=== PATIENT | male | born 1930 | race Caucasian/White ===

== ENCOUNTER 2018-02-14 17:16 | Inpatient (IN) | payer MEDICARE, OTHER ==
[~2018-02-14 17:16] MED LIST: ISOVUE-370 76%-LOCM 1 ML ONE
[2018-02-14 17:40] LABS: Hemoglobin 14.8 g/dL (14.0-18.0); Mean Corpuscular HGB CONC 33.9 g/dL (32.0-36.0); Mean Corpuscular Hemoglobin 31.3 pg (27.0-31.0); Mean Corpuscular Volume 92.5 fL (78.0-98.0); RBC Distribution Width 13.3 % (11.5-14.5); Red Blood Cell (RBC) Count 4.74 mill/uL (4.70-6.10); White Blood Cell (WBC) Count 7.9 thou/uL (4.8-10.8)
[2018-02-14 17:56] LABS: #Eosinphils 0.1 thou/uL (0.0-0.7); #Lymphocytes 1.9 thou/uL (1.20-3.40); #Monocytes 0.3 thou/uL (0.11-0.59); #Neutrophils 5.6 thou/uL (1.40-6.50); %Basophils 0.2 % (0.0-1.0); %Eosinophils 0.8 % (0.0-10.0); %Lymphocytes 23.5 % (21.0-51.0); %Monocytes 4.3 % (0.0-10.0); %Neutrophils 71.2 % (42.0-75.0); Platelet Count 72 thou/uL (130-400)
[2018-02-14 18:03] LABS: Troponin I Less than 0.010 ng/mL (< 0.028)
[2018-02-14 18:09] LABS: Potassium 2.7 mmol/L (3.5-5.1)
[2018-02-14 18:11] LABS: ALT (SGPT) 11 U/L (8-55); AST (SGOT) 16 U/L (5-34); Albumin 4.3 g/dL (3.4-4.8); Alkaline Phosphatase 91 U/L (40-150); Anion Gap 18 mmol/L (10-20); BUN (Urea Nitrogen) 17 mg/dL (8.4-25.7); CK (CPK) 36 U/L (30-200); Calc. Creatinine Clearance 0 mL/min (70-130); Calcium 9.9 mg/dL (7.8-10.44); Carbon Dioxide 22 mmol/L (23-31); Chloride 99 mmol/L (98-107); Estimated GFR-MDRD 70; Globulin 3.1 g/dL (2.4-3.5); Glucose 100 mg/dL (83-110); Protein, Total 7.4 g/dL (5.8-8.1); Sodium 136 mmol/L (136-145)
[2018-02-14] MEDS ORDERED: Potassium Chloride 20 MEQ TAB ONE (18:13)
[2018-02-14 18:20] LABS: INR-International Normal Ratio 1.1; PTT 29.7 SEC (22.9-36.1); Prothrombin Time 13.8 SEC (12.0-14.7)
--- NOTE | 2018-02-14 19:14 | CT ---
CT HEAD NONCONTRAST: 02/14/18 HISTORY: CVA. FINDINGS: No comparison. There is no evidence of acute intracranial or infarct. Diffuse cortical atrophy, chronic ischemic anna nges, and areas of old lacunar infarct are apparent. 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 It measures up to 1.4 cm oblique di ameter on the axial images. Calcification within the arterial structures. Tiny focus of increased den sity near the garcia-white junction of the posterior aspect of the right frontal lobe is noted. In the setting of recent resolution of slurred speech, however, it is of doubtful clinical significance. It will be evaluated on pending CT arteriogram. 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 CT arteriogram is pending, with multip kurtis reformats to give better characterization. Atherosclerosis. Findings were called to Dr. Bowie in the Emergency Department at 1723 hours. Code CR POS: [facility]
[2018-02-14 21:12] LABS: Troponin I Less than 0.010 ng/mL (< 0.028)
[2018-02-14] MEDS ORDERED: Labetalol HCl 100 MG/20 ML VIAL SLOW IVP PRN (22:59)
[2018-02-14] MEDS ORDERED: hydrALAZINE 20 MG/ML VIAL SLOW IVP PRN (22:59)
[2018-02-14] MEDS ORDERED: Potassium Chloride 10 MEQ in Premix Bag 1 BAG IVPB SCH (23:00)
[2018-02-14] MEDS ORDERED: Potassium Chloride 40 MEQ in Sodium Chloride 0.9% 500 ML IVPB SCH (23:30)
[2018-02-15 00:02] LABS: Troponin I 0.011 ng/mL (< 0.028)
[2018-02-15 05:32] LABS: Cardiac Risk 5.4 (Less than 4.5)
--- NOTE | 2018-02-15 08:42 | HP ---
CHIEF COMPLAINT: Slurred speech. HISTORY OF PRESENT ILLNESS: This is an 87-year-old male with past medical history of hypertension, h yperlipidemia, presenting with chief complaint of slurred speech, which came on suddenly 2 hours prio r to admission at 1513. Per the , patient has been having slurred speech, which has been intermi ttent. The states that every now and then, patient gets confused and patient developed slurred speech and today she noticed that and she called EMS. Per records en route to the hospital, patient' s speech improved. At this time on evaluation, patient denies any headaches, nausea, vomiting, dizzi ness, chest pain, upper extremity weakness or lower extremity weakness. Per the , patient's base line, patient is able to speak fluently without any slurring of his speech and patient is able to amb ulate without any difficulties. REVIEW OF SYSTEMS: All systems has been reviewed and are negative. FAMILY HISTORY: Reviewed and noncontributory to this visit. PAST MEDICAL HISTORY: Hypertension, hyperlipidemia. PAST SURGICAL HISTORY: Right shoulder surgery, left shoulder surgery. PSYCHIATRIC HISTORY: No psych history. SOCIAL HISTORY: Denies alcohol use, denies illicit drug use. Denies any smoking history. ALLERGIES: No known drug allergies. CURRENT MEDICATIONS: Patient takes tramadol 50 mg and multivitamins. PHYSICAL EXAMINATION: VITAL SIGNS: Blood pressure 148/84, pulse of 73, respiratory rate of 17, O2 sat of 94. GENERAL: Patient is alert, oriented x3. Patient is able to state his name. Patient knows the year and patient knows the vice president of consulting services. Patient does not appear to be in any acute dis tress. The patient is able to speak in full sentences. Patient is very pleasant. HEENT: Normocephalic, atraumatic. Pupils are equally round and reactive to light. Extraocular move ments are intact. No scleral icterus. Patient does not have any facial droop. Mucous membranes are moist. NECK: Supple, nontender. Trachea is midline. Full range of motion. LUNGS: Clear to auscultation bilateral. No wheezing, no rales, no rhonchi is appreciated. CARDIOVASCULAR: Positive S1, S2, regular rate and rhythm. No murmurs, no gallops, or rubs appreciat ed. ABDOMEN: Soft, nontender, nondistended. No masses. No pulsatile mass. No peritoneal signs, no rig idity, no guarding. EXTREMITIES: Upper extremity, 5/5 upper extremity strength, good pulses bilaterally. Lower extremit ies, no edema 5/5 lower extremity strength. Good pulses bilaterally. NEUROLOGIC: Cranial nerves II through XII grossly intact. No neurologic deficits noted. NIH stroke scale is 0. SKIN: Warm, dry, and intact. EMERGENCY ROOM COURSE: In the ED, patient received potassium chloride and aspirin. IMAGING: EKG showed rate of 74 with PVCs, narrow complex rhythm, normal axis. Brain CT showed there is no evidence of acute intracranial or infarct, diffuse cortical atrophy, chronic ischemic changes and areas of old lacunar infarct apparent. There is marked aneurysmal dilatation, long segment of th e basilar artery including the left vertebral artery. It measures up to 1.4 cm oblique diameter on t he axial images, calcification within the arterial structures. Tiny focal of increased density near the garcia-white junction of the posterior aspect of the right frontal lobe is noted. In the setting o f recent resolution of slurred speech; however, it is of doubtful clinical significance, it will be e valuated on pending CT arteriogram. LABORATORY DATA: WBC 7.9, hemoglobin 14.8, hematocrit 43.8, platelets 72. PT 13.8, INR is 1.1, PTT 29.7. Sodium 136, potassium 2.7, chloride is 99, carbon dioxide of 22, BUN is 17, creatinine is 1.01 , GFR of 70, glucose of 100. AST 16, ALT 11. Troponin less than 0.010 x2. Triglycerides 190, yuri sterol 162, LDL 94, HDL 30, heart disease risk ratio of 5.4. TSH is 3.328. ASSESSMENT AND PLAN: This is an 87-year-old male being admitted for slurred speech. At this point, we will rule out stroke. CT of the brain has not shown any acute intracranial pathology. We will fo llow up on MRI of the head. We will start patient on statins. We will continue aspirin and we will follow up with the patient in the morning. 1. History of hypertension. We will continue patient on current medication. 2. Hyperlipidemia. We will continue patient on statin. 3. Deep venous thrombosis and gastrointestinal prophylaxis. We will do SCDs and Pepcid.
[2018-02-15] MEDS ORDERED: Prevnar 13-Val Conj/PF 0.5 ML SYRINGE IM ONE (09:00)
[2018-02-15] MEDS ORDERED: Enoxaparin Sodium 40 MG/0.4 ML SYRINGE SC SCH (09:00)
[2018-02-15] MEDS ORDERED: Aspirin 81 mg Enteric Coated Tablet PO SCH (09:00)
--- NOTE | 2018-02-15 09:03 | CT ---
CT ARTERIOGRAM NECK WITH IV CONTRAST AND 3D MIP IMAGING CT ARTERIOGRAM HEAD WITH IV CONTRAST AND 3D MIP IMAGING CT BRAIN WITH IV CONTRAST 02/14/18 HISTORY: Slurred speech with resolution. TIA. FINDINGS: Atelectasis at the lung apices. Calcification throughout the arterial structures. Normal branches of the great vessels at the aortic arch. Good flow into carotid and vertebral system. Mild calcification and plaque at each carotid bifurcation without significant stenosis apparent. There is long segment dilatation of the left vertebral artery and the ectatic basilar artery that korina sures up to 1.0 cm diameter. The distal basilar artery contains a small thin focus of filling defect where it curves near the midline. This may simply represent wall thrombus on the coronal images, alth ough it has appearance of a possible very limited dissection on the axial images. [place] of [place] is intact. Good flow into each cerebral arterial system. Venous anomaly is noted at the medial aspect of the right frontoparietal level where a hyperdense sub tle focus is present on the noncontrast CT images. This is consistent with a small cavernous angioma. 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 This has the merna earance of a chronic process. No acute abnormalities are apparent. Atherosclerosis. Findings were called to Dr. Bowie in the Emergency Department at 1753 hours. Code CR. POS: [facility]
--- NOTE | 2018-02-15 11:52 | MRI ---
BRAIN MRI WITHOUT CONTRAST: CLINICAL HISTORY: Slurred speech. TIA. FINDINGS: Moderate global atrophy is present. There is a focus of restricted diffusion involving the left para median malik. There is ventral mass effect upon the right aspect of the malik from dolichoectasia of t he basilar artery, as was depicted on the preceding CTA exam, on 02/14/2018. No hemorrhagic suscepti bility is seen intracranially. There is mild chronic ischemic disease. Numerous dilated perivascula r spaces are present bilaterally. IMPRESSION: 1. Focal restricted diffusion, indicating acute ischemia of the left paramedian malik. 2. 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 Reference preceding C TA examination for details. 3. Moderate global atrophy and mild chronic microvascular ischemic disease. POS: [facility]
--- NOTE | 2018-02-15 14:27 | PDOC.PN ---
- Subjective Encounter Start Date: 02/15/18 Encounter Start Time: 14:26 Pt seen for followup re: ischemic CVA. Denies chest pain, shortness of breath , fevers or chills. No nausea or vomiting. Speech is better. - Objective Resuscitation Status: Resuscitation Status FULL:Full Resuscitation MAR Reviewed: Yes Vital Signs & Weight: Vital Signs (12 hours) Temp Pulse Pulse Pulse Pulse Resp BP 02/15/18 11:55 97.9 F 92 20 02/15/18 10:34 90 89 97 136/81 02/15/18 08:55 02/15/18 08:00 99.3 F 82 20 02/15/18 04:00 98.1 F 67 19 BP BP BP Pulse Ox 02/15/18 11:55 153/88 H 96 02/15/18 10:34 123/85 153/88 H 02/15/18 08:55 98 02/15/18 08:00 131/91 H 98 02/15/18 04:00 120/70 98 Weight Weight 143 lb 12.8 oz I&O: 02/14/18 02/15/18 02/16/18 06:59 06:59 06:59 Intake Total 240 Balance 240 Result Diagrams: 02/15/18 14:50 02/15/18 14:50 Additional Labs: Accuchecks 02/14/18 17:28 POC Glucose 99 EKG Reviewed by me: Yes (Tele: NSR) Phys Exam - Physical Examination Constitutional: NAD HEENT: moist MMs, sclera anicteric, oral pharynx no lesions, 2+ tonsils Neck: no nodes, no JVD, supple, full ROM Respiratory: no wheezing, no rales, no rhonchi, clear to auscultation bilateral Cardiovascular: RRR, no rub S1, S2 Gastrointestinal: soft, non-tender, no distention, positive bowel sounds Neurological: non-focal, moves all 4 limbs Psychiatric: normal affect Deviation from normal: Oriented to person and place, not to time Dx/Plan (1) Ischemic cerebrovascular accident (CVA) Code(s): I63.9 - CEREBRAL INFARCTION, UNSPECIFIED Status: Acute Comment: continue aspirin, start Plavix (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 Status: Acute Comment: d/w neurosurgery service. Recommed adding Plavix to aspirin. (3) Hypokalemia Code(s): E87.6 - HYPOKALEMIA Status: Acute Comment: replace potassium and recheck (4) HTN (hypertension) Code(s): I10 - ESSENTIAL (PRIMARY) HYPERTENSION Status: Chronic Comment: controlled (5) Dyslipidemia Code(s): E78.5 - HYPERLIPIDEMIA, UNSPECIFIED Status: Chronic Comment: continue statin - Plan * . Review of Systems - Review of Systems Constitutional: negative: fever, chills, sweats, weakness, malaise Respiratory: negative: Cough, Shortness of Breath, SOB with Excertion, Pleuritic Pain, Wheezing Cardiovascular: negative: chest pain, palpitations, orthopnea, paroxysmal nocturnal dyspnea, edema, light headedness Gastrointestinal: negative: Nausea, Vomiting, Abdominal Pain, Diarrhea, Constipation, Melena, Hematochezia Genitourinary: negative: Dysuria, Frequency, Incontinence, Hematuria, Retention Musculoskeletal: negative: Neck Pain, Shoulder Pain, Arm Pain, Back Pain, Hand Pain, Leg Pain, Foot Pain Neurological: Change in Speech. negative: Weakness, Numbness, Incoordination, Confusion, Seizures - Medications/Allergies Allergies/Adverse Reactions: Allergies Allergy/AdvReac Type Severity Reaction Status Date / Time No Known Allergies Allergy Verified 02/14/18 21:13 Medications: Current Medications Aspirin (Ecotrin) 325 mg PO DAILY [facility] Atorvastatin Calcium (Lipitor) 80 mg PO HS [facility] Clopidogrel Bisulfate (Plavix) 75 mg PO DAILY [facility] Hydralazine HCl (Apresoline) 10 mg SLOW IVP Q4H PRN PRN Reason: BP > 220/110 Labetalol HCl (Normodyne) 20 mg SLOW IVP Q1H PRN PRN Reason: BP > 220/110 Multivitamins/Minerals (Ocuvite With Lutein) 1 tab PO HS [facility] Sodium Chloride (Flush - Normal Saline) 10 ml IVF Q12HR [facility] Last Admin: 02/15/18 08:57 Dose: 10 ml Sodium Chloride (Flush - Normal Saline) 10 ml IVF PRN PRN PRN Reason: Saline Flush Last Admin: 02/14/18 23:46 Dose: 10 ml Tramadol HCl (Ultram) 50 mg PO HS COUNTS INCLUDE 234 BEDS AT THE [facility]
[2018-02-15 15:14] LABS: Anion Gap 11 mmol/L (10-20); BUN (Urea Nitrogen) 14 mg/dL (8.4-25.7); Calc. Creatinine Clearance 45 mL/min (70-130); Calcium 9.5 mg/dL (7.8-10.44); Carbon Dioxide 25 mmol/L (23-31); Chloride 106 mmol/L (98-107); Estimated GFR-MDRD 66; Glucose 135 mg/dL (83-110); Potassium 3.3 mmol/L (3.5-5.1); Sodium 139 mmol/L (136-145)
[2018-02-15 15:27] LABS: #Lymphocytes 1.3 thou/uL (1.20-3.40); #Monocytes 0.2 thou/uL (0.11-0.59); #Neutrophils 3.4 thou/uL (1.40-6.50); %Basophils 0.2 % (0.0-1.0); %Eosinophils 0.9 % (0.0-10.0); %Monocytes 3.4 % (0.0-10.0); %Neutrophils 69.5 % (42.0-75.0); Hemoglobin 12.9 g/dL (14.0-18.0); Large Platelets SLIGHT; MDiff Complete? YES; Mean Corpuscular Hemoglobin 32.1 pg (27.0-31.0); Mean Corpuscular Volume 91.7 fL (78.0-98.0); Ovalocytes SLIGHT = 2-5 cells (100X) (0-1/hpf); PLT Morphology Comment Appears Decreased; Platelet Count 70 thou/uL (130-400); RBC Distribution Width 13.4 % (11.5-14.5); White Blood Cell (WBC) Count 4.9 thou/uL (4.8-10.8)
[2018-02-15] MEDS: traMADol HCl 50 MG TAB PO SCH (21:19)
[2018-02-15] MEDS: Atorvastatin Calcium 40 MG TAB PO SCH (21:19)
[2018-02-15] MEDS: Vit A,C & E/Lutein/Minerals Tablet PO SCH (21:19)
[2018-02-16 05:08] LABS: #Eosinphils 0.1 thou/uL (0.0-0.7); #Lymphocytes 1.5 thou/uL (1.20-3.40); #Monocytes 0.3 thou/uL (0.11-0.59); #Neutrophils 3.1 thou/uL (1.40-6.50); %Basophils 0.9 % (0.0-1.0); %Eosinophils 1.4 % (0.0-10.0); %Monocytes 5.7 % (0.0-10.0); %Neutrophils 62.1 % (42.0-75.0); Hemoglobin 12.5 g/dL (14.0-18.0); Mean Corpuscular Hemoglobin 31.9 pg (27.0-31.0); Mean Corpuscular Volume 93.8 fL (78.0-98.0); Mean Platelet Volume 10.4 fL (7.4-10.4); Platelet Count 67 thou/uL (130-400); RBC Distribution Width 13.4 % (11.5-14.5); Red Blood Cell (RBC) Count 3.93 mill/uL (4.70-6.10)
[2018-02-16 05:21] LABS: Anion Gap 12 mmol/L (10-20); BUN (Urea Nitrogen) 18 mg/dL (8.4-25.7); Calc. Creatinine Clearance 58 mL/min (70-130); Calcium 9.3 mg/dL (7.8-10.44); Carbon Dioxide 25 mmol/L (23-31); Chloride 107 mmol/L (98-107); Estimated GFR-MDRD 88; Glucose 92 mg/dL (83-110); Sodium 141 mmol/L (136-145)
[2018-02-16] MEDS: Clopidogrel Bisulfate 75 MG TAB PO SCH (08:54)
[2018-02-16] MEDS: Aspirin 325 mg Enteric Coated Tablet PO SCH (08:54)
--- NOTE | 2018-02-16 09:54 | PRG ---
DATE OF SERVICE: 02/16/2018 Mr. Funes is an 87-year-old gentleman. I have discussed his care with Dr. Thompson. Mr. Funes presented with a pontine stroke. I reviewed his head CT and brain MRI which demonstrates midline pontine diffu joselin restriction consistent with a pontine sizing sprayer stroke. He has an dolichoectatic vertebrobasil ar complex consistent with a fusiform aneurysm. These often times will present with embolic events l eading to ischemia of the posterior circulation distribution. As such, this is what Mr. Funes has pre sented with. He evidently had the stroke on aspirin 325 mg. I have recommended to Dr. Thompson dual an tiplatelet therapy by adding Plavix. This has been done. There is no role for interventional stenti ng in my opinion, as I think the risk, particularly given the recent stroke and the patient's age, po tential debility is profound. I would recommend again medical management. 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
--- NOTE | 2018-02-16 14:59 | PDOC.PN ---
- Subjective Encounter Start Date: 02/16/18 Encounter Start Time: 07:20 Pt seen for followup re: ischemic stroke. Feels better. No chest pain. Ambulated today. c/o mild weakness R hand - Objective Resuscitation Status: Resuscitation Status FULL:Full Resuscitation MAR Reviewed: Yes Vital Signs & Weight: Vital Signs (12 hours) Temp Pulse Pulse Resp BP BP Pulse Ox 02/16/18 11:58 98 F 88 20 133/75 98 02/16/18 09:31 84 122/75 02/16/18 08:30 97 02/16/18 08:00 98.1 F 78 20 134/73 97 02/16/18 04:00 97.6 F 66 19 137/66 97 Weight Weight 143 lb 12.8 oz I&O: 02/15/18 02/16/18 02/17/18 06:59 06:59 06:59 Intake Total 240 600 Balance 240 600 Result Diagrams: 02/16/18 04:43 02/16/18 04:43 EKG Reviewed by me: Yes (Tele: NSR) Phys Exam - Physical Examination Constitutional: NAD HEENT: moist MMs, sclera anicteric, oral pharynx no lesions, 2+ tonsils Neck: no nodes, no JVD, supple, full ROM Respiratory: no wheezing, no rales, no rhonchi, clear to auscultation bilateral Cardiovascular: RRR, no rub S1, s2 Gastrointestinal: soft, non-tender, no distention, positive bowel sounds Neurological: non-focal, normal sensation, moves all 4 limbs Psychiatric: normal affect Deviation from normal: Oriented to person and place but not to time Dx/Plan (1) Ischemic cerebrovascular accident (CVA) Code(s): I63.9 - CEREBRAL INFARCTION, UNSPECIFIED Status: Acute Comment: continue aspirin and Plavix (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 Status: Acute Comment: appreciate neurosurgery input (3) Hypokalemia Code(s): E87.6 - HYPOKALEMIA Status: Acute Comment: replace potassium and recheck (4) HTN (hypertension) Code(s): I10 - ESSENTIAL (PRIMARY) HYPERTENSION Status: Chronic Comment: controlled (5) Dyslipidemia Code(s): E78.5 - HYPERLIPIDEMIA, UNSPECIFIED Status: Chronic Comment: on statin - Plan PT/OT, out of bed/ambulate * . Review of Systems - Review of Systems Constitutional: weakness. negative: fever, chills, sweats, malaise Respiratory: negative: Cough, Shortness of Breath, SOB with Excertion, Pleuritic Pain, Wheezing Cardiovascular: negative: chest pain, palpitations, orthopnea, paroxysmal nocturnal dyspnea, edema, light headedness Gastrointestinal: negative: Nausea, Vomiting, Abdominal Pain, Diarrhea, Constipation, Melena, Hematochezia Skin: negative: Rash, Lesions, Johnnie, Bruising Neurological: Weakness. negative: Numbness, Incoordination, Change in Speech, Confusion, Seizures - Medications/Allergies Allergies/Adverse Reactions: Allergies Allergy/AdvReac Type Severity Reaction Status Date / Time No Known Allergies Allergy Verified 02/14/18 21:13 Medications: Current Medications Aspirin (Ecotrin) 325 mg PO DAILY [facility] Last Admin: 02/16/18 08:54 Dose: 325 mg Atorvastatin Calcium (Lipitor) 80 mg PO HS [facility] [place] Last Admin: 02/15/18 21:19 Dose: 80 mg Clopidogrel Bisulfate (Plavix) 75 mg PO DAILY [facility] [place] Last Admin: 02/16/18 08:54 Dose: 75 mg Hydralazine HCl (Apresoline) 10 mg SLOW IVP Q4H PRN PRN Reason: BP > 220/110 Labetalol HCl (Normodyne) 20 mg SLOW IVP Q1H PRN PRN Reason: BP > 220/110 Multivitamins/Minerals (Ocuvite With Lutein) 1 tab PO HS [facility] [place] Last Admin: 02/15/18 21:19 Dose: 1 tab Sodium Chloride (Flush - Normal Saline) 10 ml IVF Q12HR [facility] [place] Last Admin: 02/16/18 08:54 Dose: 10 ml Sodium Chloride (Flush - Normal Saline) 10 ml IVF PRN PRN PRN Reason: Saline Flush Last Admin: 02/14/18 23:46 Dose: 10 ml Tramadol HCl (Ultram) 50 mg PO HS [facility] [place] Last Admin: 02/15/18 21:19 Dose: 50 mg
[2018-02-16] MEDS: Potassium Chloride 20 MEQ TAB PO SCH ×2 (15:57→21:00)
[2018-02-16] MEDS: traMADol HCl 50 MG TAB PO SCH (21:00)
[2018-02-16] MEDS: Atorvastatin Calcium 40 MG TAB PO SCH (21:03)
[2018-02-16] MEDS: Vit A,C & E/Lutein/Minerals Tablet PO SCH (21:03)
--- NOTE | 2018-02-16 23:22 | CON ---
NEUROLOGY CONSULTATION DATE OF CONSULTATION: 02/16/2018 CONSULTING PHYSICIAN: Hospitalist Service. IMPRESSION: 1. Pontine stroke with minor deficits including slurred speech and subtle right-sided weakness. 2. Basilar ectasia. 3. Hyperlipidemia. PLAN: 1. Rehab transfer. 2. Antiplatelet therapy. 3. Address hyperlipidemia. HISTORY: Mr. Funes is an 87-year-old gentleman who came in with acute onset of slurred speech. He di d not note any other symptoms. Otherwise, he has not noticed any problems swallowing or any weakness of either side of the body. He usually gets around the house independently. Physical therapy asses sed him earlier and found that he was unstable in his gait also. He requires some standby assistance and the use of a roller walker. It was determined it was probably best that he will be transferred to rehabilitation. MRI of the brain revealed a left pontine stroke that was new. His CTA otherwise showed no carotid disease. Echocardiogram showed 65% ejection fraction. PAST MEDICAL HISTORY: As per chart. SOCIAL HISTORY: No tobacco or alcohol use. He is living at home independently. There is no one els e in the home with him. MEDICATION LIST: Reviewed. REVIEW OF SYSTEMS: No complaint of headache, nausea, vomiting, vertigo, chest pain, or shortness of breath. PHYSICAL EXAMINATION: GENERAL: He is a reasonably healthy-appearing elderly man, in no acute distress. VITAL SIGNS: Stable. He is afebrile. HEENT: Pupils are equal. Conjunctivae clear. Oropharynx clear. NECK: Supple. EXTREMITIES: No cyanosis. NEUROLOGIC: He was alert and cooperative. His speech was subtly dysarthric, but fluent. There was a slight left nasolabial fold flattening. There was arm roll testing on the right side. Finge r-to-nose movements were fairly equal. Hydrate Control Tender strength was equal. Gait was as described above. Sensa tion was intact to light touch. IMAGING: EKG shows a sinus rhythm. SUMMARY: This is an elderly gentleman with basilar ectasia and a secondary lacunar infarction in the malik. He has some minor deficits, but most importantly some gait instability given his risk of fall . I would anticipate he will be transferred to rehabilitation. I agree with your medical therapy an d be happy to follow up with him as an outpatient.
--- NOTE | 2018-02-17 04:47 | PDOC.EVN ---
Event Note - Event Note Event Note: I was called to evaluate Leif Vee at ~ 4:00am. Per nursing staff patient is now having symptoms of slurred speech which is progressively gotten worse, with left sided weakness. NIHSS of 17 on exams. On exams patient is not able to raise left arm or left lower extremity. Have a right sided facial droop. Able to follow commands. Spoke to Girl friend regarding MRI results. Decided to get palliative care to describe goals of care. Ordered another CT of brain to make sure that there is no acute change from previous CT of brain. Patient's prognosis is poor. Critical care time ~ 60 mins
[2018-02-17 05:31] LABS: #Eosinphils 0.1 thou/uL (0.0-0.7); #Lymphocytes 1.4 thou/uL (1.20-3.40); #Monocytes 0.2 thou/uL (0.11-0.59); #Neutrophils 3.3 thou/uL (1.40-6.50); %Basophils 0.5 % (0.0-1.0); %Eosinophils 1.9 % (0.0-10.0); %Lymphocytes 27.9 % (21.0-51.0); %Monocytes 3.2 % (0.0-10.0); %Neutrophils 66.6 % (42.0-75.0); Hemoglobin 12.5 g/dL (14.0-18.0); Mean Corpuscular HGB CONC 34.9 g/dL (32.0-36.0); Mean Corpuscular Hemoglobin 32.5 pg (27.0-31.0); Mean Corpuscular Volume 93.1 fL (78.0-98.0); Mean Platelet Volume 9.7 fL (7.4-10.4); Platelet Count 62 thou/uL (130-400); RBC Distribution Width 13.2 % (11.5-14.5); Red Blood Cell (RBC) Count 3.84 mill/uL (4.70-6.10)
[2018-02-17 05:40] LABS: Anion Gap 10 mmol/L (10-20); BUN (Urea Nitrogen) 17 mg/dL (8.4-25.7); Calc. Creatinine Clearance 55 mL/min (70-130); Calcium 9.3 mg/dL (7.8-10.44); Carbon Dioxide 25 mmol/L (23-31); Chloride 108 mmol/L (98-107); Estimated GFR-MDRD 83; Glucose 97 mg/dL (83-110); Potassium 3.7 mmol/L (3.5-5.1); Sodium 139 mmol/L (136-145)
--- NOTE | 2018-02-17 08:12 | CT ---
PRELIMINARY REPORT/[facility]/EMERGENTY AFTER-HOURS PROCEDURE CT Head Without Intravenous Contrast CLINICAL HISTORY: 87 years old, male; Signs and symptoms; Altered mental status/memory loss and weakness, extremity; Co nfusion or disorientation; Patient HX: AMS; Increased slurred speech. Left sided weakness TECHNIQUE: Axial computed tomography images of the head/brain without intravenous contrast. COMPARISON: CT Brain W WO Con 02/17/2018 12:23 AM FINDINGS: Suspect a a very small amount of high attenuation material within or adjacent to the dependent aspect of the right lateral ventricle, best seen on image #19, series 2. Uncertain if this might represent a minimal amount of blood within the right lateral ventricle versus calcification. In retrospect, thi s was present on the recent comparison exam and is probably unchanged, somewhat more easily visible on the current exam. Eventual comparison with any older available prior exams will be helpful. If needed, follow-up imaging with MRI could be more specific in distinguishing between small calcific ation and hemorrhage. Follow-up CT may also be useful. No other acute intracranial hemorrhage. No mass effect or midline shift. Ventricle size is normal for age. Prominent vascular calcifications noted in the internal carotid and vertebral basilar systems. As before, very ectatic and elongated basilar artery, similar to recent exam. No definite acute infarct by CT. MRI could be more sensitive/specific for detection, as clinically di rected. There is mild, relatively symmetrical decreased attenuation in the periventricular white matter, like ly from microvascular disease. Suspect small old lacunar infarcts in the basal ganglia regions bilaterally. No definite acute skull fracture. Included paranasal sinuses are essentially clear. IMPRESSION: Very small amount of high attenuation material within or adjacent to the dependent aspect of the righ t lateral ventricle, details above. Uncertain if this represents a minimal amount of blood within the right lateral ventricle versus calc ification. In retrospect, this was present on the recent comparison exam and is probably unchanged. Please see a joshua discussion/recommendation. Changes of microvascular disease, and small old lacunar infarcts. No definite acute infarct by CT, see above discussion. Vascular disease as discussed above. Thank you for allowing us to participate in the care of your patient. Dictated and Authenticated by: Karthik Ramos MD 02/17/2018 4:40 AM Central Time ([place] & [place]) NONCONTRAST HEAD CT: HISTORY: Slurred speech. Altered mental status. COMPARISON: 02/17/2018 at 12:24 a.m. FINDINGS: This report is in agreement with the preliminary report by [facility]. No significant interval change. Stable dolichoectasia and dilatation of the posterior circulation. Stable hyperdensity in the white matter, adjacent to the posterior aspect of the right lateral ventr icle. The trace amount of intraventricular blood is also unchanged. POS: [facility]
--- NOTE | 2018-02-17 08:14 | CT ---
PRELIMINARY REPORT/[facility]/EMERGENTY AFTER-HOURS PROCEDURE CT Head Without Intravenous Contrast CLINICAL HISTORY: 87 years old, male; Signs and symptoms; Altered mental status/memory loss; Confusion or disorientatio n; Patient HX: AMS; Left sided weakness TECHNIQUE: Axial computed tomography images of the head/brain without intravenous contrast. COMPARISON: No relevant prior studies available. FINDINGS: No definite acute skull fracture. Included paranasal sinuses are essentially clear. No acute intracranial hemorrhage or mass effect. Ventricle size is normal for age. Prominent calcifications noted in the internal carotid and vertebral basilar systems. Very elongated and ectatic basilar artery, measuring up to 11 mm in diameter. There is mild, relatively symmetrical decreased attenuation in the periventricular white matter, like ly from microvascular disease. Suspect small old lacunar infarcts in the basal ganglia/internal capsule regions bilaterally. No definite acute infarct by CT. MRI could be more sensitive/specific for detection, as clinically di rected. IMPRESSION: No acute intracranial bleed or mass effect. Changes of microvascular disease, and small old lacunar infarcts. No definite acute infarct by CT, see above. Prominent vascular changes as discussed above. Thank you for allowing us to participate in the care of your patient. Dictated and Authenticated by: Karthik Ramos MD 02/17/2018 12:39 AM Central Time ([place] & [place]) FINAL REPORT HEAD CT WITHOUT CONTRAST: HISTORY: CVA. COMPARISON: 02/14/2018. FINDINGS: This report is in agreement with the preliminary report by [facility]. A small amount of hemorrhage in the dependent portion of the right lateral ventricle with also probable hemorrhage in the adjacent perive ntricular white matter. No additional hemorrhage is appreciated. Stable lacunar infarcts. 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 No CT evidence of an acute infarct. Hypoattenuation involving the left paramedian malik compatible with infarct noted on recent MRI. POS: [facility]
[2018-02-17] MEDS: Clopidogrel Bisulfate 75 MG TAB PO SCH (10:56)
[2018-02-17] MEDS: Aspirin 325 mg Enteric Coated Tablet PO SCH (10:56)
--- NOTE | 2018-02-17 15:54 | MRI ---
MRI OF BRAIN WITHOUT CONTRAST 02/17/18 COMPARISON: 02/15/18 HISTORY: Change in neuro status. Known pontine lesion. FINDINGS: Stable dolichoectasia of the left vertebral and basilar artery. There are chronic small vessel isch emic changes of the white matter. There is age appropriate atrophy. Cortical garcia-white matter differ entiation is preserved. Stable configuration of the ventricular system. Stable hemosiderin deposition involving the dependent portion of the right lateral ventricle as well as the adjacent right periventricular white matter extending into the cortex medially at the level of the left occipital lobe. Stable aeration of the sinuses. Calvarium has a normal T1 marrow signal intensity. Midline brain pare nchymal structures are unremarkable. Redemonstration of a pontine infarct on the left. New infarct on the right involving the lower malik a nd possibly upper medulla. IMPRESSION: New brain stem infarct on the right. Redemonstration of left pontine infarct. POS: [facility]
--- NOTE | 2018-02-17 17:35 | PDOC.PN ---
- Subjective Encounter Start Date: 02/17/18 Encounter Start Time: 17:34 Pt seen for followup re: ischemic CVA. Lying in bed, unable to move left side of his body. Pt not answering questions, could not complete ROS. - Objective Resuscitation Status: Resuscitation Status DNI:No Intubation MAR Reviewed: Yes Vital Signs & Weight: Vital Signs (12 hours) Temp Pulse Pulse Pulse Resp BP BP 02/17/18 15:49 97.6 F 84 14 02/17/18 11:36 98.6 F 89 16 02/17/18 09:48 96 86 167/99 H 144/79 H 02/17/18 08:49 02/17/18 07:53 97.4 F L 73 16 BP Pulse Ox 02/17/18 15:49 149/77 H 98 02/17/18 11:36 133/74 97 02/17/18 09:48 02/17/18 08:49 98 02/17/18 07:53 166/76 H 98 Weight Weight 143 lb 12.8 oz I&O: 02/16/18 02/17/18 02/18/18 06:59 06:59 06:59 Intake Total 240 900 650 Balance 240 900 650 Result Diagrams: 02/17/18 04:58 02/17/18 04:58 Additional Labs: Accuchecks 02/17/18 03:42 POC Glucose 95 EKG Reviewed by me: Yes (Tele: NSR) Phys Exam - Physical Examination Not moving left side of his body HEENT: moist MMs Neck: supple Respiratory: clear to auscultation bilateral Cardiovascular: RRR Gastrointestinal: soft LUE and LLE flaccid; right facial droop Psychiatric: normal affect Deviation from normal: Pt appears to be oriented to person only Dx/Plan (1) Ischemic cerebrovascular accident (CVA) Code(s): I63.9 - CEREBRAL INFARCTION, UNSPECIFIED Status: Acute Comment: continue aspirin, Plavix and statin. 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 Review of Systems - Medications/Allergies Allergies/Adverse Reactions: Allergies Allergy/AdvReac Type Severity Reaction Status Date / Time No Known Allergies Allergy Verified 02/14/18 21:13 Medications: Current Medications Aspirin (Ecotrin) 325 mg PO DAILY [facility] Last Admin: 02/17/18 10:56 Dose: Not Given Atorvastatin Calcium (Lipitor) 80 mg PO [facility] Last Admin: 02/16/18 21:03 Dose: 80 mg Clopidogrel Bisulfate (Plavix) 75 mg PO DAILY [facility] Last Admin: 02/17/18 10:56 Dose: Not Given Hydralazine HCl (Apresoline) 10 mg SLOW IVP Q4H PRN PRN Reason: BP > 220/110 Labetalol HCl (Normodyne) 20 mg SLOW IVP Q1H PRN PRN Reason: BP > 220/110 Multivitamins/Minerals (Ocuvite With Lutein) 1 tab PO HS [facility] Last Admin: 02/16/18 21:03 Dose: 1 tab Sodium Chloride (Flush - Normal Saline) 10 ml IVF Q12HR [facility] Last Admin: 02/17/18 10:56 Dose: Not Given Sodium Chloride (Flush - Normal Saline) 10 ml IVF PRN PRN PRN Reason: Saline Flush Last Admin: 02/14/18 23:46 Dose: 10 ml Tramadol HCl (Ultram) 50 mg PO [facility] Last Admin: 02/16/18 21:00 Dose: 50 mg
[2018-02-18] MEDS: Vit A,C & E/Lutein/Minerals Tablet PO SCH ×2 (01:54→21:31)
[2018-02-18] MEDS: traMADol HCl 50 MG TAB PO SCH ×2 (01:54→21:31)
[2018-02-18] MEDS: Atorvastatin Calcium 40 MG TAB PO SCH ×2 (01:54→21:31)
[2018-02-18 06:22] LABS: Anion Gap 12 mmol/L (10-20); BUN (Urea Nitrogen) 19 mg/dL (8.4-25.7); Calc. Creatinine Clearance 55 mL/min (70-130); Calcium 9.8 mg/dL (7.8-10.44); Carbon Dioxide 22 mmol/L (23-31); Chloride 108 mmol/L (98-107); Estimated GFR-MDRD 85; Glucose 102 mg/dL (83-110); Potassium 3.9 mmol/L (3.5-5.1); Sodium 138 mmol/L (136-145)
[2018-02-18 06:51] LABS: Eosinophils 1 % (0-10); Hemoglobin 13.5 g/dL (14.0-18.0); Hypochromia SLIGHT = 6-15 cells (100X) (0-5/hpf); Lymphocytes 8 % (21-51); MDiff Complete? YES; Mean Corpuscular Hemoglobin 31.6 pg (27.0-31.0); Mean Corpuscular Volume 92.8 fL (78.0-98.0); Mean Platelet Volume 10.2 fL (7.4-10.4); Monocytes 1 % (0-10); Neutrophil 90 % (42-75); PLT Morphology Comment Appears Decreased; Platelet Count 74 thou/uL (130-400); RBC Distribution Width 13.4 % (11.5-14.5); Red Blood Cell (RBC) Count 4.27 mill/uL (4.70-6.10); White Blood Cell (WBC) Count 10.9 thou/uL (4.8-10.8)
[2018-02-18] MEDS ORDERED: Aspirin 300 MG Suppository PR SCH (08:15)
[2018-02-18] MEDS: Aspirin 325 mg Enteric Coated Tablet PO SCH (10:05)
[2018-02-18] MEDS: Clopidogrel Bisulfate 75 MG TAB PO SCH (10:08)
[2018-02-18] MEDS ORDERED: Vancomycin HCl 1 GM in Premix Bag 1 BAG IVPB SCH (13:00)
--- NOTE | 2018-02-18 13:16 | RAD ---
CHEST 1 VIEW: HISTORY: Shortness of breath. Tachycardia. FINDINGS: Atherosclerosis of the aortic knob. Slight elongation of the descending thoracic aorta. Normal card iac silhouette. Pulmonary vessels and hilum are normal. Costophrenic angles are clear. No masses o r consolidation. No pneumothorax or osseous abnormalities. IMPRESSION: No acute cardiopulmonary process. POS: [facility]
[2018-02-18] MEDS: Sodium Chloride 0.9% 1,000 ML IV SCH (13:45)
--- NOTE | 2018-02-18 15:41 | PDOC.PN ---
- Subjective Encounter Start Date: 02/18/18 Encounter Start Time: 07:00 Pt seen for followup re: ischemic CVA. Pt not answering questions, unable to complete ROS. - Objective Resuscitation Status: Resuscitation Status DNI:No Intubation MAR Reviewed: Yes Vital Signs & Weight: Vital Signs (12 hours) Temp Pulse Resp BP Pulse Ox 02/18/18 12:27 98 02/18/18 11:20 100.3 F H 122 H 22 H 119/76 95 02/18/18 09:18 99 02/18/18 07:17 99.9 F H 108 H 20 135/83 99 Weight Weight 140 lb 3 oz I&O: 02/17/18 02/18/18 02/19/18 06:59 06:59 06:59 Intake Total 900 650 Balance 900 650 Result Diagrams: 02/18/18 05:42 02/18/18 05:42 EKG Reviewed by me: Yes (Tele: NSR) Phys Exam - Physical Examination Constitutional: NAD HEENT: moist MMs Neck: supple Respiratory: clear to auscultation bilateral Cardiovascular: RRR Gastrointestinal: soft paralysis of LUE and LLE; R facial droop better Dx/Plan (1) Ischemic cerebrovascular accident (CVA) Code(s): I63.9 - CEREBRAL INFARCTION, UNSPECIFIED Status: Acute Comment: on aspirin, Plavix and statin. Pt has stanilsav strokes (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 Status: Acute Comment: vascular abnormality is on left side; new stroke is on right side (3) HTN (hypertension) Code(s): I10 - ESSENTIAL (PRIMARY) HYPERTENSION Status: Chronic Comment: controlled (4) Dyslipidemia Code(s): E78.5 - HYPERLIPIDEMIA, UNSPECIFIED Status: Chronic Comment: on statin (5) Hypokalemia Code(s): E87.6 - HYPOKALEMIA Status: Resolved - Plan plan discussed w/ family, PT/OT, DVT proph w/SCDs * . Pt has episodes of tachycardia. If fever spikes, panculture and start antibiotics. Review of Systems - Medications/Allergies Allergies/Adverse Reactions: Allergies Allergy/AdvReac Type Severity Reaction Status Date / Time No Known Allergies Allergy Verified 02/14/18 21:13 Medications: Current Medications Aspirin (Ecotrin) 325 mg PO DAILY [facility] Last Admin: 02/18/18 10:05 Dose: Not Given Atorvastatin Calcium (Lipitor) 80 mg PO HS [facility] Last Admin: 02/18/18 01:54 Dose: Not Given Clopidogrel Bisulfate (Plavix) 75 mg PO DAILY [facility] Last Admin: 02/18/18 10:08 Dose: Not Given Hydralazine HCl (Apresoline) 10 mg SLOW IVP Q4H PRN PRN Reason: BP > 220/110 Piperacillin Sod/Tazobactam (Sod 4.5 gm/ Sodium Chloride) 100 mls @ 200 mls/hr IVPB Q8H [facility] Sodium Chloride (Normal Saline 0.9%) 1,000 mls @ 75 mls/hr IV .[id number] [facility] Last Admin: 02/18/18 13:45 Dose: 1,000 mls Vancomycin HCl 500 mg/ Sodium (Chloride) 100 mls @ 100 mls/hr IVPB 0200,1400 [facility] Labetalol HCl (Normodyne) 20 mg SLOW IVP Q1H PRN PRN Reason: BP > 220/110 Miscellaneous Medication (Pharmacy To Dose) 1 each IVPB ONE PRN PRN Reason: Pharmacy to dose Stop: 03/20/18 12:38 Multivitamins/Minerals (Ocuvite With Lutein) 1 tab PO [facility] Last Admin: 02/18/18 01:54 Dose: Not Given Sodium Chloride (Flush - Normal Saline) 10 ml IVF Q12HR [facility] Last Admin: 02/18/18 10:08 Dose: Not Given Sodium Chloride (Flush - Normal Saline) 10 ml IVF PRN PRN PRN Reason: Saline Flush Last Admin: 02/14/18 23:46 Dose: 10 ml Tramadol HCl (Ultram) 50 mg PO [facility] Last Admin: 02/18/18 01:54 Dose: Not Given
[2018-02-18] MEDS: Piperacillin/Tazobactam 4.5 GM in Sodium Chloride 0.9% 100 ML IVPB SCH ×2 (16:45→21:30)
[2018-02-18 18:51] LABS: Bacteria/HPF None Seen HPF (None Seen); Bilirubin Small (Negative); Blood, Urine Negative (Negative); Clarity CLEAR (Clear); Glucose, Urine (Dipstick) Negative (Negative); Hyaline Casts/LPF 0-3 HYALINE CAST LPF (0-3 Hyaline); Leukocyte Trace (Negative); Nitrite Negative (Negative); Protein, Urine (Dipstick) Negative (Neg-Trace); Specific Gravity, Urine 1.021 (1.002-1.036); Squamous Epithelial None Seen HPF (0-3); WBC/HPF None Seen HPF (0-3); pH, Urine 6.5 (5.0-9.0)
[2018-02-19] MEDS: Vancomycin HCl 500 MG in Sodium Chloride 0.9% 100 ML IVPB SCH ×2 (03:08→13:58)
[2018-02-19] MEDS: Sodium Chloride 0.9% 1,000 ML IV SCH ×2 (03:08→20:35)
[2018-02-19] MEDS: Piperacillin/Tazobactam 4.5 GM in Sodium Chloride 0.9% 100 ML IVPB SCH ×3 (04:51→20:35)
[2018-02-19] MEDS ORDERED: Acetaminophen 650 MG Suppository PR PRN (06:24)
[2018-02-19] MEDS: Aspirin 325 mg Enteric Coated Tablet PO SCH (08:04)
[2018-02-19] MEDS: Clopidogrel Bisulfate 75 MG TAB PO SCH (08:04)
[2018-02-19] MEDS ORDERED: hydrALAZINE 20 MG/ML VIAL SLOW IVP SCH (11:30)
--- NOTE | 2018-02-19 14:44 | PDOC.PN ---
- Subjective Encounter Start Date: 02/19/18 Encounter Start Time: 07:20 Pt seen for followup re: ischemic stroke. Pt is not speaking, unable to complete ROS. - Objective Resuscitation Status: Resuscitation Status DNI:No Intubation MAR Reviewed: Yes Vital Signs & Weight: Vital Signs (12 hours) Temp Pulse Pulse Pulse Resp BP BP 02/19/18 13:18 97 02/19/18 11:56 88 02/19/18 11:09 97.7 F 88 20 02/19/18 09:16 87 85 156/83 H 159/85 H 02/19/18 08:00 99 F 95 20 02/19/18 04:00 99.0 F 68 20 BP Pulse Ox 02/19/18 13:18 136/78 02/19/18 11:56 02/19/18 11:09 181/99 H 99 02/19/18 09:16 02/19/18 08:00 180/90 H 97 02/19/18 04:00 183/94 H 96 Weight Weight 140 lb 3 oz I&O: 02/18/18 02/19/18 02/20/18 06:59 06:59 06:59 Intake Total 650 1070 Output Total 500 Balance 650 570 Result Diagrams: 02/18/18 05:42 02/18/18 05:42 EKG Reviewed by me: Yes (Tele: NSR) Phys Exam - Physical Examination HEENT: moist MMs Neck: supple Coarse stanislav breath sounds Cardiovascular: RRR Gastrointestinal: soft Moving RUE and RLE, not LUE or LLE Deviation from normal: Unable to assess Dx/Plan (1) Ischemic cerebrovascular accident (CVA) Code(s): I63.9 - CEREBRAL INFARCTION, UNSPECIFIED Status: Acute Comment: continue aspirin, statin and Plavix for stanislav ischemic CVA (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 Review of Systems - Medications/Allergies Allergies/Adverse Reactions: Allergies Allergy/AdvReac Type Severity Reaction Status Date / Time No Known Allergies Allergy Verified 02/14/18 21:13 Medications: Current Medications Acetaminophen (Tylenol) 650 mg [place] Q6H PRN PRN Reason: Headache/Fever or Pain Aspirin (Ecotrin) 325 mg PO DAILY [facility] Last Admin: 02/19/18 08:04 Dose: Not Given Atorvastatin Calcium (Lipitor) 80 mg PO HS [facility] Last Admin: 02/18/18 21:31 Dose: Not Given Clopidogrel Bisulfate (Plavix) 75 mg PO DAILY [facility] Last Admin: 02/19/18 08:04 Dose: Not Given Hydralazine HCl (Apresoline) 10 mg SLOW IVP Q4H PRN PRN Reason: BP > 220/110 Piperacillin Sod/Tazobactam (Sod 4.5 gm/ Sodium Chloride) 100 mls @ 200 mls/hr IVPB Q8H [facility] Last Admin: 02/19/18 12:33 Dose: 100 mls Sodium Chloride (Normal Saline 0.9%) 1,000 mls @ 75 mls/hr IV .[id number] [facility] Last Admin: 02/19/18 03:08 Dose: 1,000 mls Vancomycin HCl 500 mg/ Sodium (Chloride) 100 mls @ 100 mls/hr IVPB 0200,1400 [facility] Last Admin: 02/19/18 13:58 Dose: 100 mls Labetalol HCl (Normodyne) 20 mg SLOW IVP Q1H PRN PRN Reason: BP > 220/110 Miscellaneous Medication (Pharmacy To Dose) 1 each IVPB ONE PRN PRN Reason: Pharmacy to dose Stop: 03/20/18 12:38 Multivitamins/Minerals (Ocuvite With Lutein) 1 tab PO [facility] Last Admin: 02/18/18 21:31 Dose: Not Given Sodium Chloride (Flush - Normal Saline) 10 ml IVF Q12HR [facility] Last Admin: 02/19/18 08:04 Dose: Not Given Sodium Chloride (Flush - Normal Saline) 10 ml IVF PRN PRN PRN Reason: Saline Flush Last Admin: 02/14/18 23:46 Dose: 10 ml Tramadol HCl (Ultram) 50 mg PO [facility] Last Admin: 02/18/18 21:31 Dose: Not Given
[2018-02-19] MEDS: Atorvastatin Calcium 40 MG TAB PO SCH (20:22)
[2018-02-19] MEDS: traMADol HCl 50 MG TAB PO SCH (20:22)
[2018-02-19] MEDS: Vit A,C & E/Lutein/Minerals Tablet PO SCH (20:23)
[2018-02-20 01:50] LABS: Vancomycin, Trough 9.4 ug/mL
[2018-02-20] MEDS: Vancomycin HCl 750 MG in Sodium Chloride 0.9% 250 ML 250 ML IVPB SCH ×2 (02:55→14:07)
[2018-02-20] MEDS: Vancomycin HCl 500 MG in Sodium Chloride 0.9% 100 ML IVPB SCH (03:52)
[2018-02-20] MEDS: Piperacillin/Tazobactam 4.5 GM in Sodium Chloride 0.9% 100 ML IVPB SCH ×3 (04:56→20:53)
[2018-02-20] MEDS: Sodium Chloride 0.9% 1,000 ML IV SCH (08:06)
[2018-02-20] MEDS: Clopidogrel Bisulfate 75 MG TAB PO SCH (10:12)
[2018-02-20] MEDS: Aspirin 325 mg Enteric Coated Tablet PO SCH (10:12)
[2018-02-20] MEDS: Dextrose 5 % And 0.9 % NaCl 1,000 ML IV SCH (11:52)
--- NOTE | 2018-02-20 11:53 | RAD ---
AP CHEST: History: Question of aspiration. Evaluate for infection. Date: 02-20-18 Comparison: 02-18-18 FINDINGS: AP chest demonstrates ectasia and calcification of the aorta. Mild cardiomegaly is seen. The lungs ar e well aerated. No evidence of active intrathoracic disease is seen. No evidence of effusions, pneumo jamal, or pneumothorax. IMPRESSION: Unremarkable AP chest. POS: [facility]
--- NOTE | 2018-02-20 17:45 | PDOC.PN ---
- Subjective Encounter Start Date: 02/20/18 Encounter Start Time: 07:20 Pt seen for followup re: ischemic CVA. Not answering questions, unable to complete ROS. - Objective Resuscitation Status: Resuscitation Status DNI:No Intubation Vital Signs & Weight: Vital Signs (12 hours) Temp Pulse Pulse Pulse Pulse Resp BP 02/20/18 16:49 98.2 F 53 L 22 H 02/20/18 14:10 57 L 56 L 158/73 H 02/20/18 13:05 60 02/20/18 12:02 97.9 F 58 L 22 H 02/20/18 08:51 97.9 F 56 L 20 BP BP BP Pulse Ox Pulse Ox 02/20/18 16:49 152/67 H 98 02/20/18 14:10 163/74 H 98 02/20/18 13:05 148/70 H 02/20/18 12:02 151/69 H 98 02/20/18 08:51 158/69 H 99 Weight Weight 140 lb 3 oz I&O: 02/19/18 02/20/18 02/21/18 06:59 06:59 06:59 Intake Total 1070 1999 Output Total 500 Balance 570 1999 Result Diagrams: 02/18/18 05:42 02/18/18 05:42 Phys Exam - Physical Examination HEENT: moist MMs Neck: supple Respiratory: clear to auscultation bilateral Cardiovascular: RRR Gastrointestinal: soft L hemiplegia Deviation from normal: Unable to assess Dx/Plan (1) Ischemic cerebrovascular accident (CVA) Code(s): I63.9 - CEREBRAL INFARCTION, UNSPECIFIED Status: Acute Comment: will continue aspirin, statin and Plavix (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 Discussed with family re: nutrition. Family considering PEG tube. Review of Systems - Medications/Allergies Allergies/Adverse Reactions: Allergies Allergy/AdvReac Type Severity Reaction Status Date / Time No Known Allergies Allergy Verified 02/14/18 21:13 Medications: Current Medications Acetaminophen (Tylenol) 650 mg [facility] Q6H PRN PRN Reason: Headache/Fever or Pain Aspirin (Aspirin) 300 mg [facility] DAILY [facility] Atorvastatin Calcium (Lipitor) 80 mg PO HS [facility] Last Admin: 02/19/18 20:22 Dose: Not Given Clopidogrel Bisulfate (Plavix) 75 mg PO DAILY [facility] Last Admin: 02/20/18 10:12 Dose: Not Given Hydralazine HCl (Apresoline) 10 mg SLOW IVP Q4H PRN PRN Reason: BP > 220/110 Piperacillin Sod/Tazobactam (Sod 4.5 gm/ Sodium Chloride) 100 mls @ 200 mls/hr IVPB Q8H [facility] Last Admin: 02/20/18 11:54 Dose: 100 mls Vancomycin HCl 750 mg/ Sodium (Chloride) 250 mls @ 250 mls/hr IVPB 0200,1400 [facility] Last Admin: 02/20/18 14:07 Dose: 250 mls Dextrose/Sodium Chloride (D5 0.9% Ns) 1,000 mls @ 70 mls/hr IV .[id number] [facility] Last Admin: 02/20/18 11:52 Dose: 1,000 mls Labetalol HCl (Normodyne) 20 mg SLOW IVP Q1H PRN PRN Reason: BP > 220/110 Miscellaneous Medication (Pharmacy To Dose) 1 each IVPB ONE PRN PRN Reason: Pharmacy to dose Stop: 03/20/18 12:38 Multivitamins/Minerals (Ocuvite With Lutein) 1 tab PO HS [facility] Last Admin: 02/19/18 20:23 Dose: Not Given Sodium Chloride (Flush - Normal Saline) 10 ml IVF Q12HR [facility] Last Admin: 02/20/18 10:12 Dose: Not Given Sodium Chloride (Flush - Normal Saline) 10 ml IVF PRN PRN PRN Reason: Saline Flush Last Admin: 02/14/18 23:46 Dose: 10 ml Tramadol HCl (Ultram) 50 mg PO HS [facility] Last Admin: 02/19/18 20:22 Dose: Not Given
[2018-02-20] MEDS: Atorvastatin Calcium 40 MG TAB PO SCH (20:51)
[2018-02-20] MEDS: traMADol HCl 50 MG TAB PO SCH (20:51)
[2018-02-20] MEDS: Vit A,C & E/Lutein/Minerals Tablet PO SCH (20:52)
[2018-02-21] MEDS: Vancomycin HCl 750 MG in Sodium Chloride 0.9% 250 ML 250 ML IVPB SCH ×2 (03:09→14:55)
[2018-02-21] MEDS: Piperacillin/Tazobactam 4.5 GM in Sodium Chloride 0.9% 100 ML IVPB SCH ×3 (06:40→21:34)
--- NOTE | 2018-02-21 08:00 | CON ---
DATE OF CONSULTATION: 02/20/2018 REFERRING PHYSICIAN: Dr. Karthik Thompson. REASON FOR CONSULTATION: Evaluate the patient for endoscopic gastrostomy tube placement. HISTORY OF PRESENT ILLNESS: Mr. Leif Funes is an unfortunate 87-year-old male, hospitalized about 4 days ago with acute CVA. The initial presentation when he was having slurred speech, but no swallowing weakness. However, subsequently developed left-sided weakness and also he is not able to talk. He is awake, appears weak. Most of his history was obtained by talking to patient's who is in the room. The patient has had no prior stroke or transient ischemic attack. The patient is not able to swallow at the present time. The patient needs a gastrostomy tube placement for long-term nutrition support. The patient's is familiar with the G-tube placement. Apparently , her previous had Parkinson's disease and also had G-tube placement. The patient is nonverbal. He does nod his head on questioning to some extent. There is no other relevant history. ALLERGIES: None. SOCIAL HISTORY: The patient is a former smoker. Does not drink alcohol. MEDICAL ILLNESSES: 1. Hypertension. 2. Hyperlipidemia. 3. Recent CVA with aphasia and also dysphagia. 4.Macular degeneration. SURGERIES: History of hernia repair. He has had right shoulder surgery and also left shoulder surgery. MEDICATION LIST: Reviewed. REVIEW OF SYSTEMS: Unobtainable because the CVA and aphasia. PHYSICAL EXAMINATION: GENERAL: He is awake and appears comfortable, but does not verbalize. VITAL SIGNS: Temperature 98.2 degrees Fahrenheit, pulse is 53, blood pressure is 152/67. HEENT: Conjunctivae clear. NECK: Supple. No adenitis or thyromegaly noted. CARDIOVASCULAR: First and second heart sounds normal. LUNGS: Clear to auscultation. ABDOMEN: Soft. Abdomen is nondistended. Abdomen is nontender. There is no organomegaly or masses. LABORATORY DATA: From 2 days ago, CBC: WBC 10,900, hemoglobin 13.5, hematocrit 39.6, platelet count is 74,000. Chem-7, sodium 138, potassium 3.9, chloride 108, bicarbonate 22, BUN is 19, creatinine 0.85, glucose 102. CT of the head shows lateral infarct, but no acute CVA. He had an MRI on 02/17, MRI shows new basilar infarct in the right side. CLINICAL IMPRESSION: An 87-year-old unfortunate male with acute cerebrovascular accident. The patient at present time subsequently developed weakness over the right and left side. He is also aphasic. He has difficulty swallowing. I and have explained about the EGD and PEG tube. As I mentioned earlier, the is familiar with the procedure. PLAN: EGD and PEG tube tomorrow. MTDD
[2018-02-21] MEDS: Dextrose 5 % And 0.9 % NaCl 1,000 ML IV SCH ×2 (08:56→18:13)
[2018-02-21] MEDS ORDERED: CEFAZOLIN/Water 2 GM/20 ML SYRINGE ONE (10:08)
[2018-02-21] MEDS ORDERED: Promethazine HCl 25 MG/ML VIAL IM PRN (11:30)
[2018-02-21] MEDS ORDERED: Promethazine HCl 25 MG/ML VIAL SLOW IVP PRN (11:30)
[2018-02-21] MEDS ORDERED: Ondansetron HCl/PF 4 MG/2 ML Vial IVP PRN (11:30)
[2018-02-21 12:12] VITALS: BMI 23.3
[2018-02-21] MEDS ORDERED: PROPOFOL 200 MG/20 ML VIAL ONE (12:53)
--- NOTE | 2018-02-21 13:01 | OP ---
DATE OF SURGERY: 02/21/2018. OPERATIVE PROCEDURE: Esophagogastroduodenoscopy with endoscopic gastrostomy tube placement. PREOPERATIVE DIAGNOSES: Cerebrovascular accident, aspiration, dysphagia. PROCEDURE IN DETAIL: The patient was placed on his back and was given sedation by Anesthesia Department. The patient also has IV Ancef 2 grams before the procedure. A Pentax video gastroscope under direct vision was passed down the oropharynx, past the GE junction, into the stomach and subsequently to the duodenum. The esophagus appeared normal. The GE junction, no pathology seen. The fundus, cardia, gastric body, gastric antrum, no pathology seen. The duodenum, no pathology seen. The G-tube site was marked by transillumination from within. This was confirmed by applying finger pressure. The site was cleaned and surgically prepped. The site was anesthetized with 1% Xylocaine infiltration. Over the site, a size-16 Angiocath was advanced into this. Through the Angiocath, a guidewire was advanced into the stomach. This was grasped at polypectomy site. The wire was pulled out.. To the end of the guidewire outside the mouth, gastrostomy tube was connected. The wire was pulled back retrograde and the tube was left in place. The patient was rescoped again to confirm proper placement of G-tube. RECOMMENDATIONS: 1. Keep n.p.o. 2. Start G-tube feeding after 6 p.m. today. ANGEL
[2018-02-21 14:02] LABS: Vancomycin, Trough 14.4 ug/mL
[2018-02-21] MEDS: Aspirin 300 MG Suppository PR SCH (14:55)
[2018-02-21] MEDS: Scopolamine 1.5 mg/72 hour Patch TOP SCH (14:55)
[2018-02-21] MEDS: Clopidogrel Bisulfate 75 MG TAB PO SCH (14:56)
[2018-02-21] MEDS ORDERED: Furosemide 20 MG/2 ML VIAL SLOW IVP SCH (18:15)
--- NOTE | 2018-02-21 18:17 | PDOC.PN ---
- Subjective Encounter Start Date: 02/21/18 Encounter Start Time: 17:40 Pt seen for followup re: ischemic CVA. Nonverbal, unable to complete ROS. - Objective Resuscitation Status: Resuscitation Status DNI:No Intubation Vital Signs & Weight: Vital Signs (12 hours) Temp Pulse Resp BP Pulse Ox 02/21/18 15:49 98 F 67 20 155/68 H 99 02/21/18 12:00 98.5 F 55 L 20 165/77 H 97 02/21/18 08:00 97 Weight Admit Weight 143 lb 12.8 oz Weight 140 lb 3.424 oz I&O: 02/20/18 02/21/18 02/22/18 06:59 06:59 06:59 Intake Total 1999 1981 Balance 1999 1981 Result Diagrams: 02/18/18 05:42 02/18/18 05:42 Phys Exam - Physical Examination HEENT: moist MMs Neck: supple Bibasal crackles Cardiovascular: RRR Gastrointestinal: soft PEG tube+ Moving RUE and RLE, L side flaccid Psychiatric: normal affect Dx/Plan (1) Ischemic cerebrovascular accident (CVA) Code(s): I63.9 - CEREBRAL INFARCTION, UNSPECIFIED Status: Acute Comment: on aspirin, statin and Plavix (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 continue IV Zosyn and vancomycin for suspected sepsis Review of Systems - Medications/Allergies Allergies/Adverse Reactions: Allergies Allergy/AdvReac Type Severity Reaction Status Date / Time No Known Allergies Allergy Verified 02/14/18 21:13 Medications: Current Medications Acetaminophen (Tylenol) 650 mg [place] Q6H PRN PRN Reason: Headache/Fever or Pain Aspirin (Aspirin) 300 mg [place] DAILY [facility] Last Admin: 02/21/18 14:55 Dose: 300 mg Atorvastatin Calcium (Lipitor) 80 mg PO HS [facility] Last Admin: 02/20/18 20:51 Dose: Not Given Clopidogrel Bisulfate (Plavix) 75 mg PO DAILY [facility] Last Admin: 02/21/18 14:56 Dose: Not Given Furosemide (Lasix) 20 mg SLOW IVP ONE [facility] Hydralazine HCl (Apresoline) 10 mg SLOW IVP Q4H PRN PRN Reason: BP > 220/110 Piperacillin Sod/Tazobactam (Sod 4.5 gm/ Sodium Chloride) 100 mls @ 200 mls/hr IVPB Q8H [facility] Last Admin: 02/21/18 12:35 Dose: 100 mls Vancomycin HCl 750 mg/ Sodium (Chloride) 250 mls @ 250 mls/hr IVPB 0200,1400 [facility] Last Admin: 02/21/18 14:55 Dose: 250 mls Dextrose/Sodium Chloride (D5 0.9% Ns) 1,000 mls @ 70 mls/hr IV .[id number] [facility] Last Admin: 02/21/18 18:13 Dose: Not Given Labetalol HCl (Normodyne) 20 mg SLOW IVP Q1H PRN PRN Reason: BP > 220/110 Miscellaneous Medication (Pharmacy To Dose) 1 each IVPB ONE PRN PRN Reason: Pharmacy to dose Stop: 03/20/18 12:38 Multivitamins/Minerals (Ocuvite With Lutein) 1 tab PO HS [facility] Last Admin: 02/20/18 20:52 Dose: Not Given Scopolamine (Transderm Scop) 1.5 mg TOP Q3D [facility] Last Admin: 02/21/18 14:55 Dose: 1.5 mg Sodium Chloride (Flush - Normal Saline) 10 ml IVF Q12HR [facility] Last Admin: 02/21/18 14:56 Dose: Not Given Sodium Chloride (Flush - Normal Saline) 10 ml IVF PRN PRN PRN Reason: Saline Flush Last Admin: 02/14/18 23:46 Dose: 10 ml Tramadol HCl (Ultram) 50 mg PO HS [facility] Last Admin: 02/20/18 20:51 Dose: Not Given
[2018-02-21] MEDS ORDERED: Amlodipine 5 MG TAB PO SCH (18:30)
--- NOTE | 2018-02-21 18:40 | RAD ---
PORTABLE AP CHEST: Date: 02/21/18 HISTORY: Follow-up evaluation. Question of aspiration. COMPARISON: 02/20/18. FINDINGS: Cardiac silhouette and bronchovascular markings are accentuated by shallow depth of inspiration and t he portable technique of the exam. No consolidation or definite pleural fluid is seen. There is linea r atelectasis present at each lung base. Vascular calcifications seen in the thoracic aorta. Chest is overall stable when compared to the prior exam. IMPRESSION: Stable chest. POS: ROCIO
[2018-02-21] MEDS: Vit A,C & E/Lutein/Minerals Tablet PO SCH (21:34)
[2018-02-21] MEDS: Atorvastatin Calcium 40 MG TAB PO SCH (21:34)
[2018-02-21] MEDS: traMADol HCl 50 MG TAB PO SCH (21:34)
[2018-02-22] MEDS: Vancomycin HCl 750 MG in Sodium Chloride 0.9% 250 ML 250 ML IVPB SCH ×2 (02:56→15:34)
[2018-02-22] MEDS: Piperacillin/Tazobactam 4.5 GM in Sodium Chloride 0.9% 100 ML IVPB SCH ×3 (04:31→20:49)
[2018-02-22] MEDS: Dextrose 5 % And 0.9 % NaCl 1,000 ML IV SCH (04:31)
[2018-02-22] MEDS ORDERED: Amlodipine 5 MG TAB PO SCH (09:00)
[2018-02-22] MEDS: Aspirin 300 MG Suppository PR SCH (10:02)
[2018-02-22] MEDS: Clopidogrel Bisulfate 75 MG TAB PO SCH (10:10)
[2018-02-22] MEDS ORDERED: Amlodipine 5 MG TAB PER TUBE SCH (10:15)
[2018-02-22] MEDS ORDERED: Clopidogrel Bisulfate 75 MG TAB PER TUBE SCH (10:15)
[2018-02-22 15:13] LABS: Vancomycin, Trough 14.9 ug/mL
--- NOTE | 2018-02-22 16:25 | PDOC.PN ---
- Subjective Encounter Start Date: 02/22/18 Encounter Start Time: 07:00 Pt seen for followup re: ischemic CVA. More alert today but not answering questions, could not complete ROS. - Objective Resuscitation Status: Resuscitation Status DNI:No Intubation Vital Signs & Weight: Vital Signs (12 hours) Temp Pulse Pulse Pulse Resp BP BP 02/22/18 16:00 98.5 F 61 20 02/22/18 12:00 97.5 F L 56 L 20 02/22/18 10:17 61 02/22/18 10:10 61 02/22/18 08:55 58 L 61 162/70 H 134/61 02/22/18 08:00 97.8 F 61 20 BP Pulse Ox 02/22/18 16:00 146/63 H 100 02/22/18 12:00 153/65 H 100 02/22/18 10:17 02/22/18 10:10 02/22/18 08:55 02/22/18 08:00 130/60 94 L Weight Admit Weight 143 lb 12.8 oz Weight 140 lb 3.424 oz I&O: 02/21/18 02/22/18 02/23/18 06:59 06:59 06:59 Intake Total 1981 2174 100 Balance 1982 2174 100 Result Diagrams: 02/23/18 08:29 02/25/18 07:46 Dx/Plan (1) Ischemic cerebrovascular accident (CVA) Code(s): I63.9 - CEREBRAL INFARCTION, UNSPECIFIED Status: Acute Comment: on aspirin, statin and Plavix (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 Review of Systems - Medications/Allergies Allergies/Adverse Reactions: Allergies Allergy/AdvReac Type Severity Reaction Status Date / Time No Known Allergies Allergy Verified 02/14/18 21:13 Medications: Current Medications Acetaminophen (Tylenol) 500 mg PER TUBE Q6H PRN PRN Reason: Mild Pain (1-3) Amlodipine Besylate (Norvasc) 5 mg PER TUBE DAILY [facility] Last Admin: 02/25/18 08:28 Dose: 5 mg Amoxicillin/Clavulanate Potassium (Augmentin) 875 mg PER TUBE Q12HR [facility] Last Admin: 02/25/18 08:27 Dose: 875 mg Artificial Tears (Tears Naturale) 2 drop EA EYE PRN PRN PRN Reason: Dry Eyes Aspirin (Aspirin) 325 mg PER TUBE DAILY [facility] Last Admin: 02/25/18 08:26 Dose: 325 mg Atorvastatin Calcium (Lipitor) 80 mg PER TUBE [facility] Bisacodyl (Dulcolax) 10 mg [place] Q8H PRN PRN Reason: Constipation Bisacodyl (Dulcolax) 10 mg PO DAILYPRN PRN PRN Reason: Constipation Calcium Carbonate (Tums) 1,000 mg PER TUBE Q4H PRN PRN Reason: Heartburn or Indigestion Clopidogrel Bisulfate (Plavix) 75 mg PER TUBE DAILY [facility] Last Admin: 02/25/18 08:26 Dose: 75 mg Guaifenesin (Robitussin Sf) 200 mg PER TUBE Q4H PRN PRN Reason: Cough Hydralazine HCl (Apresoline) 10 mg SLOW IVP Q4H PRN PRN Reason: SBP Greater Than 180 Dextrose/Sodium Chloride (D5 0.9% Ns) 1,000 mls @ 100 mls/hr IV .Q10H [facility] Last Admin: 02/25/18 08:25 Dose: 1,000 mls Labetalol HCl (Normodyne) 20 mg SLOW IVP Q1H PRN PRN Reason: SBP Greater Than 180 Loperamide HCl (Imodium) 2 mg PER TUBE PRN PRN PRN Reason: Diarrhea/Loose Stools Loratadine (Claritin) 10 mg PER TUBE DAILYPRN PRN PRN Reason: Sinus Symptoms Mineral Oil/White Petrolatum (Eucerin Cream) 0 gm TOP BIDPRN PRN PRN Reason: Dry Skin Miscellaneous Medication (Pharmacy To Dose) 1 each IVPB ONE PRN PRN Reason: Pharmacy to dose Stop: 03/20/18 12:38 Multivitamins/Minerals (Ocuvite With Lutein) 1 tab PER TUBE [facility] Ondansetron HCl (Zofran) 4 mg IVP Q6H PRN PRN Reason: Nausea/Vomiting Ondansetron HCl (Zofran Odt) 4 mg SL Q6H PRN PRN Reason: Nausea/Vomiting Potassium Bicarbonate/Citric Acid (K-Vescent) 25 meq PER TUBE [facility] Last Admin: 02/25/18 08:26 Dose: 25 meq Potassium Chloride (Klor-Con) 40 meq PER TUBE 1030 [facility] Stop: 02/25/18 12:30 Last Admin: 02/25/18 10:49 Dose: 40 meq Potassium Chloride (Klor-Con) [facility] Saccharomyces Boulardii (Florastor) 250 mg PER TUBE DAILY [facility] Last Admin: 02/25/18 08:27 Dose: 250 mg Scopolamine (Transderm Scop) 1.5 mg TOP Q3D [facility] Last Admin: 02/24/18 14:06 Dose: 1.5 mg Senna/Docusate Sodium (Senokot S) 2 tab PER TUBE BID PRN PRN Reason: Constipation Sodium Chloride (Flush - Normal Saline) 10 ml IVF Q12HR [facility] Last Admin: 02/25/18 08:28 Dose: 10 ml Sodium Chloride (Flush - Normal Saline) 10 ml IVF PRN PRN PRN Reason: Saline Flush Last Admin: 02/14/18 23:46 Dose: 10 ml Sodium Chloride ([place] Nasal [place] 0.65%) 0 ml EA NARE QIDPRN PRN PRN Reason: Nasal Congestion Temazepam (Restoril) 15 mg PER TUBE HSPRN PRN PRN Reason: Insomnia Tramadol HCl (Ultram) 50 mg PO Q4H PRN PRN Reason: Pain 4-6
--- NOTE | 2018-02-22 18:39 | PRG ---
HOSPITAL VISIT NOTE DATE OF VISIT: 02/22/2018 This is an 87-year-old status post CVA, aphasia, and also difficulty swallowing. He is tolerating tube feeding very well. Abdomen is soft and nondistended. The G-tube site appears very healthy. The dressing was removed and also the bumper_ was loosened up. At the present time, he is getting feeding at 50 mL per hour. RECOMMENDATIONS: 1. Continue tube feeding as before. 2. We will sign off. 3. If there is any problem, please call me back. ANGEL
[2018-02-22] MEDS: Atorvastatin Calcium 40 MG TAB PO SCH (20:50)
[2018-02-22] MEDS: traMADol HCl 50 MG TAB PO SCH (20:51)
[2018-02-22] MEDS: Vit A,C & E/Lutein/Minerals Tablet PO SCH (20:52)
[2018-02-23] MEDS: Dextrose 5 % And 0.9 % NaCl 1,000 ML IV SCH ×3 (01:25→21:53)
[2018-02-23] MEDS: Vancomycin HCl 750 MG in Sodium Chloride 0.9% 250 ML 250 ML IVPB SCH ×2 (02:07→13:44)
[2018-02-23] MEDS: Piperacillin/Tazobactam 4.5 GM in Sodium Chloride 0.9% 100 ML IVPB SCH ×3 (05:08→21:52)
[2018-02-23] MEDS ORDERED: Ondansetron PF 4 MG/2 ML Vial IVP PRN (07:32)
[2018-02-23] MEDS ORDERED: Eucerin (Mineral Oil/Petrolatum,White) 30 gm Jar TOP PRN (07:32)
[2018-02-23] MEDS ORDERED: Loratadine 10 MG TAB PO PRN (07:32)
[2018-02-23] MEDS ORDERED: Bisacodyl 5 MG TAB PO PRN (07:32)
[2018-02-23] MEDS ORDERED: Artificial Tears 18 DROP/0.9 ML EA EYE PRN (07:32)
[2018-02-23] MEDS ORDERED: Acetaminophen 500 MG TAB PO PRN (07:32)
[2018-02-23] MEDS ORDERED: Sodium Chloride 0.65% Nasal 44 ML BOT EA NARE PRN (07:32)
[2018-02-23] MEDS ORDERED: Temazepam 15 MG CAP PO PRN (07:32)
[2018-02-23] MEDS ORDERED: Senokot S 8.6-50 MG TAB PO PRN (07:32)
[2018-02-23] MEDS ORDERED: Calcium Carbonate 500 MG ChewTAB PO PRN (07:32)
[2018-02-23] MEDS ORDERED: Diabetic Tussin 200 MG/10 ML UDCUP PO PRN (07:32)
[2018-02-23] MEDS ORDERED: Ondansetron ODT 4 MG TAB PO PRN (07:32)
[2018-02-23] MEDS ORDERED: Loperamide HCl 2 MG CAP PO PRN (07:32)
[2018-02-23] MEDS ORDERED: Labetalol HCl 100 MG/20 ML VIAL SLOW IVP PRN (07:33)
[2018-02-23] MEDS ORDERED: hydrALAZINE 20 MG/ML VIAL SLOW IVP PRN (07:33)
[2018-02-23 08:59] LABS: ALT (SGPT) 9 U/L (8-55); AST (SGOT) 15 U/L (5-34); Albumin 2.9 g/dL (3.4-4.8); Alkaline Phosphatase 65 U/L (40-150); Anion Gap 3 mmol/L (10-20); BUN (Urea Nitrogen) 16 mg/dL (8.4-25.7); Bilirubin, Total 0.5 mg/dL (0.2-1.2); Calc. Creatinine Clearance 61 mL/min (70-130); Calcium 8.6 mg/dL (7.8-10.44); Carbon Dioxide 31 mmol/L (23-31); Chloride 120 mmol/L (98-107); Estimated GFR-MDRD Greater than 90; Globulin 2.2 g/dL (2.4-3.5); Glucose 138 mg/dL (83-110); Protein, Total 5.1 g/dL (5.8-8.1); Sodium 152 mmol/L (136-145)
[2018-02-23 09:03] LABS: Potassium 2.3 mmol/L (3.5-5.1)
[2018-02-23 09:35] LABS: #Eosinphils 0.1 thou/uL (0.0-0.7); #Lymphocytes 0.7 thou/uL (1.20-3.40); #Monocytes 0.3 thou/uL (0.11-0.59); #Neutrophils 4.5 thou/uL (1.40-6.50); %Basophils 0.3 % (0.0-1.0); %Eosinophils 1.5 % (0.0-10.0); %Lymphocytes 12.8 % (21.0-51.0); %Monocytes 5.6 % (0.0-10.0); %Neutrophils 79.8 % (42.0-75.0); Hemoglobin 10.2 g/dL (14.0-18.0); MDiff Complete? YES; Mean Corpuscular HGB CONC 33.9 g/dL (32.0-36.0); Mean Corpuscular Hemoglobin 32.1 pg (27.0-31.0); Mean Corpuscular Volume 94.7 fL (78.0-98.0); Mean Platelet Volume 10.4 fL (7.4-10.4); PLT Morphology Comment Appears Decreased; Platelet Count 54 thou/uL (130-400); Polychromasia SLIGHT = 2-3 cells (100X) (0-2/hpf); RBC Distribution Width 13.6 % (11.5-14.5); Red Blood Cell (RBC) Count 3.17 mill/uL (4.70-6.10); White Blood Cell (WBC) Count 5.6 thou/uL (4.8-10.8)
[2018-02-23] MEDS: Clopidogrel Bisulfate 75 MG TAB PER TUBE SCH (09:45)
[2018-02-23] MEDS: Amlodipine 5 MG TAB PER TUBE SCH (09:46)
[2018-02-23] MEDS: Aspirin 300 MG Suppository PR SCH ×2 (09:47→11:41)
--- NOTE | 2018-02-23 10:20 | PDOC.PN ---
- Subjective Encounter Start Date: 02/23/18 Encounter Start Time: 07:30 -: old records requested/rev Patient seen and examined. pt is nonverbal from stroke. No overnight events - Objective Resuscitation Status: Resuscitation Status DNI:No Intubation MAR Reviewed: Yes Vital Signs & Weight: Vital Signs (12 hours) Temp Pulse Resp BP Pulse Ox 02/23/18 09:46 62 02/23/18 08:00 99.2 F 80 20 158/71 H 100 02/23/18 04:00 98.2 F 68 20 137/68 99 02/23/18 00:00 99.1 F 62 24 H 143/65 H 97 Weight Admit Weight 143 lb 12.8 oz Weight 140 lb 3.424 oz I&O: 02/22/18 02/23/18 02/24/18 06:59 06:59 06:59 Intake Total 2174 200 Balance 2174 200 Result Diagrams: 02/23/18 08:29 02/23/18 08:29 Radiology Reviewed by me: Yes EKG Reviewed by me: Yes Phys Exam - Physical Examination Constitutional: NAD HEENT: PERRLA, moist MMs, sclera anicteric Neck: no JVD, supple Respiratory: no wheezing, no rales, no rhonchi Cardiovascular: RRR, no significant murmur, no rub Gastrointestinal: soft, non-tender, no distention, positive bowel sounds PEG+ Musculoskeletal: no edema, pulses present weakness from stroke noted Lymphatic: no nodes Psychiatric: normal affect Skin: no rash, normal turgor Dx/Plan (1) Ischemic cerebrovascular accident (CVA) Code(s): I63.9 - CEREBRAL INFARCTION, UNSPECIFIED Status: Acute Comment: on aspirin, statin and Plavix (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 * not ready for discharge today * increase IVF 100 ml per hour * repeat labs tomorrow Review of Systems - Review of Systems Other: unable to review due to baseline cognitive deficit and due to non verbal status - Medications/Allergies Allergies/Adverse Reactions: Allergies Allergy/AdvReac Type Severity Reaction Status Date / Time No Known Allergies Allergy Verified 02/14/18 21:13 Medications: Current Medications Acetaminophen (Tylenol) 650 mg [place] Q6H PRN PRN Reason: Headache/Fever or Pain Acetaminophen (Tylenol) 1,000 mg PO Q6H PRN PRN Reason: Mild Pain (1-3) Amlodipine Besylate (Norvasc) 5 mg PER TUBE DAILY [facility] Last Admin: 02/23/18 09:46 Dose: 5 mg Artificial Tears (Tears Naturale) 2 drop EA EYE PRN PRN PRN Reason: Dry Eyes Aspirin (Aspirin) 300 mg [place] DAILY [facility] Last Admin: 02/23/18 09:47 Dose: 300 mg Atorvastatin Calcium (Lipitor) 80 mg PO HS [facility] Last Admin: 02/22/18 20:50 Dose: 80 mg Bisacodyl (Dulcolax) 10 mg PO DAILYPRN PRN PRN Reason: Constipation Calcium Carbonate (Tums) 1,000 mg PO Q4H PRN PRN Reason: Heartburn or Indigestion Clopidogrel Bisulfate (Plavix) 75 mg PER TUBE DAILY [facility] Last Admin: 02/23/18 09:45 Dose: 75 mg Guaifenesin (Robitussin Sf) 200 mg PO Q4H PRN PRN Reason: Cough Hydralazine HCl (Apresoline) 10 mg SLOW IVP Q4H PRN PRN Reason: SBP Greater Than 180 Piperacillin Sod/Tazobactam (Sod 4.5 gm/ Sodium Chloride) 100 mls @ 200 mls/hr IVPB Q8H [facility] Last Admin: 02/23/18 05:08 Dose: 100 mls Vancomycin HCl 750 mg/ Sodium (Chloride) 250 mls @ 250 mls/hr IVPB 0200,1400 [facility] Last Admin: 02/23/18 02:07 Dose: 250 mls Potassium Phosphate 30 mmol/ (Sodium Chloride) 510 mls @ 83.3 mls/hr IVPB NOW REPLACED BY [facility] Stop: 02/23/18 16:53 Dextrose/Sodium Chloride (D5 0.9% Ns) 1,000 mls @ 100 mls/hr IV .Q10H [facility]PL[facility] Labetalol HCl (Normodyne) 20 mg SLOW IVP Q1H PRN PRN Reason: SBP Greater Than 180 Loperamide HCl (Imodium) 2 mg PO PRN PRN PRN Reason: Diarrhea/Loose Stools Loratadine (Claritin) 10 mg PO DAILYPRN PRN PRN Reason: Sinus Symptoms Mineral Oil/White Petrolatum (Eucerin Cream) 0 gm TOP BIDPRN PRN PRN Reason: Dry Skin Miscellaneous Medication (Pharmacy To Dose) 1 each IVPB ONE PRN PRN Reason: Pharmacy to dose Stop: 03/20/18 12:38 Multivitamins/Minerals (Ocuvite With Lutein) 1 tab PO [facility] Last Admin: 02/22/18 20:52 Dose: 1 tab Ondansetron HCl (Zofran Odt) 4 mg PO Q6H PRN PRN Reason: Nausea/Vomiting Ondansetron HCl (Zofran) 4 mg IVP Q6H PRN PRN Reason: Nausea/Vomiting Scopolamine (Transderm Scop) 1.5 mg TOP Q3D [facility] Last Admin: 02/21/18 14:55 Dose: 1.5 mg Senna/Docusate Sodium (Senokot S) 2 tab PO BID PRN PRN Reason: Constipation Sodium Chloride (Flush - Normal Saline) 10 ml IVF Q12HR [facility] Last Admin: 02/23/18 09:48 Dose: 10 ml Sodium Chloride (Flush - Normal Saline) 10 ml IVF PRN PRN PRN Reason: Saline Flush Last Admin: 02/14/18 23:46 Dose: 10 ml Sodium Chloride ([place] Nasal [place] 0.65%) 0 ml EA NARE QIDPRN PRN PRN Reason: Nasal Congestion Temazepam (Restoril) 15 mg PO HSPRN PRN PRN Reason: Insomnia Tramadol HCl (Ultram) 50 mg PO [facility] Last Admin: 02/22/18 20:51 Dose: Not Given
[2018-02-23] MEDS ORDERED: Potassium Phosphate 30 MMOL in Sodium Chloride 0.9% 500 ML IVPB SCH (10:45)
[2018-02-23] MEDS: traMADol HCl 50 MG TAB PO SCH (21:51)
[2018-02-23] MEDS: Vit A,C & E/Lutein/Minerals Tablet PO SCH (21:52)
[2018-02-23] MEDS: Atorvastatin Calcium 40 MG TAB PO SCH (21:52)
[2018-02-23 22:14] LABS: Magnesium 1.3 mg/dL (1.6-2.6)
[2018-02-23 22:23] LABS: Potassium 2.5 mmol/L (3.5-5.1)
[2018-02-23] MEDS ORDERED: Potassium Chloride 40 MEQ in Sodium Chloride 0.9% 250 ML 250 ML IVPB SCH (23:00)
[2018-02-23] MEDS ORDERED: Magnesium 2 GM/50 ML 2 GM in Premix Bag 1 BAG IVPB SCH (23:00)
[2018-02-24] MEDS: Vancomycin HCl 750 MG in Sodium Chloride 0.9% 250 ML 250 ML IVPB SCH ×2 (01:49→15:06)
[2018-02-24] MEDS: Piperacillin/Tazobactam 4.5 GM in Sodium Chloride 0.9% 100 ML IVPB SCH ×3 (04:39→21:00)
[2018-02-24] MEDS ORDERED: Potassium Chloride 40 MEQ in Sodium Chloride 0.9% 250 ML 250 ML IVPB SCH (05:00)
[2018-02-24 05:22] LABS: Anion Gap 8 mmol/L (10-20); BUN (Urea Nitrogen) 12 mg/dL (8.4-25.7); Calc. Creatinine Clearance 69 mL/min (70-130); Calcium 8.4 mg/dL (7.8-10.44); Carbon Dioxide 27 mmol/L (23-31); Chloride 118 mmol/L (98-107); Estimated GFR-MDRD Greater than 90; Glucose 111 mg/dL (83-110); Sodium 150 mmol/L (136-145)
[2018-02-24 05:24] LABS: Potassium 2.8 mmol/L (3.5-5.1)
[2018-02-24 07:18] LABS: Phosphorus 2.7 mg/dL (2.3-4.7)
[2018-02-24] MEDS: Amlodipine 5 MG TAB PER TUBE SCH (09:24)
[2018-02-24] MEDS: Clopidogrel Bisulfate 75 MG TAB PER TUBE SCH (09:25)
[2018-02-24] MEDS: Potassium Bicarbonate/Cit Ac 25 MEQ TAB PER TUBE SCH ×2 (09:29→18:44)
[2018-02-24] MEDS: Aspirin 300 MG Suppository PR SCH (09:29)
--- NOTE | 2018-02-24 11:21 | PDOC.PN ---
- Subjective Encounter Start Date: 02/24/18 Encounter Start Time: 07:30 Patient seen and examined. No overnight events - Objective Resuscitation Status: Resuscitation Status DNI:No Intubation MAR Reviewed: Yes Vital Signs & Weight: Vital Signs (12 hours) Temp Pulse Resp BP BP Pulse Ox 02/24/18 09:24 72 180/86 H 02/24/18 07:59 98.7 F 72 24 H 180/86 H 99 02/24/18 04:00 98.7 F 65 20 162/74 H 95 02/24/18 00:00 98.5 F 63 22 H 132/63 95 Weight Admit Weight 143 lb 12.8 oz Weight 140 lb 3.424 oz I&O: 02/23/18 02/24/18 02/25/18 06:59 06:59 06:59 Intake Total 200 2766 Balance 200 2766 Result Diagrams: 02/23/18 08:29 02/24/18 03:41 EKG Reviewed by me: Yes Phys Exam - Physical Examination Constitutional: NAD HEENT: PERRLA, sclera anicteric Neck: no JVD, supple coarse sound+ Cardiovascular: RRR, no significant murmur, no rub Gastrointestinal: soft, no distention, positive bowel sounds PEG+ Musculoskeletal: no edema, pulses present not following any command Deviation from normal: not following any command Skin: no rash, normal turgor Dx/Plan (1) Ischemic cerebrovascular accident (CVA) Code(s): I63.9 - CEREBRAL INFARCTION, UNSPECIFIED Status: Acute Comment: on aspirin, statin and Plavix (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 Status: Acute Comment: surgical risk high, per neurosurgery service (3) Dyslipidemia Code(s): E78.5 - HYPERLIPIDEMIA, UNSPECIFIED Status: Chronic Comment: on statin (4) HTN (hypertension) Code(s): I10 - ESSENTIAL (PRIMARY) HYPERTENSION Status: Chronic Comment: add amlodipine (5) Hypokalemia Code(s): E87.6 - HYPOKALEMIA Status: Resolved (6) Hypernatremia Code(s): E87.0 - HYPEROSMOLALITY AND HYPERNATREMIA Status: Acute (7) Hypomagnesemia Code(s): E83.42 - HYPOMAGNESEMIA Status: Acute (8) Thrombocytopenia Code(s): D69.6 - THROMBOCYTOPENIA, UNSPECIFIED Status: Acute - Plan cont current plan of care, continue antibiotics, PT/OT, hospice social worker, speech therapy, respiratory therapy, DVT proph w/SCDs * overall pt is not doing well, he has been declined for rehab, even if he is discharged to [facility], he will be bounce back * he needs more free water for hypernatremia * continue IVF * continue empiric antibiotics * his prognosis is very poor * he may benefit with hospice care * palliative care on case * medication reviewed as below * symptomatic treatment. Review of Systems - Review of Systems Other: unable to review due to his current cognition - Medications/Allergies Allergies/Adverse Reactions: Allergies Allergy/AdvReac Type Severity Reaction Status Date / Time No Known Allergies Allergy Verified 02/14/18 21:13 Medications: Current Medications Acetaminophen (Tylenol) 650 mg [place] Q6H PRN PRN Reason: Headache/Fever or Pain Acetaminophen (Tylenol) 1,000 mg PO Q6H PRN PRN Reason: Mild Pain (1-3) Amlodipine Besylate (Norvasc) 5 mg PER TUBE DAILY [facility] Last Admin: 02/24/18 09:24 Dose: 5 mg Artificial Tears (Tears Naturale) 2 drop EA EYE PRN PRN PRN Reason: Dry Eyes Aspirin (Aspirin) 325 mg PO DAILY [facility] Atorvastatin Calcium (Lipitor) 80 mg PO HS [facility] Last Admin: 02/23/18 21:52 Dose: 80 mg Bisacodyl (Dulcolax) 10 mg PO DAILYPRN PRN PRN Reason: Constipation Calcium Carbonate (Tums) 1,000 mg PO Q4H PRN PRN Reason: Heartburn or Indigestion Clopidogrel Bisulfate (Plavix) 75 mg PER TUBE DAILY [facility] Last Admin: 02/24/18 09:25 Dose: 75 mg Guaifenesin (Robitussin Sf) 200 mg PO Q4H PRN PRN Reason: Cough Hydralazine HCl (Apresoline) 10 mg SLOW IVP Q4H PRN PRN Reason: SBP Greater Than 180 Piperacillin Sod/Tazobactam (Sod 4.5 gm/ Sodium Chloride) 100 mls @ 200 mls/hr IVPB Q8H [facility] Last Admin: 02/24/18 04:39 Dose: 100 mls Vancomycin HCl 750 mg/ Sodium (Chloride) 250 mls @ 250 mls/hr IVPB 0200,1400 [facility] Last Admin: 02/24/18 01:49 Dose: 250 mls Dextrose/Sodium Chloride (D5 0.9% Ns) 1,000 mls @ 100 mls/hr IV .Q10H [facility] Last Admin: 02/23/18 21:53 Dose: 1,000 mls Labetalol HCl (Normodyne) 20 mg SLOW IVP Q1H PRN PRN Reason: SBP Greater Than 180 Loperamide HCl (Imodium) 2 mg PO PRN PRN PRN Reason: Diarrhea/Loose Stools Loratadine (Claritin) 10 mg PO DAILYPRN PRN PRN Reason: Sinus Symptoms Mineral Oil/White Petrolatum (Eucerin Cream) 0 gm TOP BIDPRN PRN PRN Reason: Dry Skin Miscellaneous Medication (Pharmacy To Dose) 1 each IVPB ONE PRN PRN Reason: Pharmacy to dose Stop: 03/20/18 12:38 Multivitamins/Minerals (Ocuvite With Lutein) 1 tab PO HS [facility] Last Admin: 02/23/18 21:52 Dose: 1 tab Ondansetron HCl (Zofran Odt) 4 mg PO Q6H PRN PRN Reason: Nausea/Vomiting Ondansetron HCl (Zofran) 4 mg IVP Q6H PRN PRN Reason: Nausea/Vomiting Potassium Bicarbonate/Citric Acid (K-Vescent) 25 meq PER TUBE BID-[facility] Last Admin: 02/24/18 09:29 Dose: 25 meq Scopolamine (Transderm Scop) 1.5 mg TOP Q3D [facility] Last Admin: 02/21/18 14:55 Dose: 1.5 mg Senna/Docusate Sodium (Senokot S) 2 tab PO BID PRN PRN Reason: Constipation Sodium Chloride (Flush - Normal Saline) 10 ml IVF Q12HR [facility] Last Admin: 02/24/18 10:08 Dose: Not Given Sodium Chloride (Flush - Normal Saline) 10 ml IVF PRN PRN PRN Reason: Saline Flush Last Admin: 02/14/18 23:46 Dose: 10 ml Sodium Chloride ([place] Nasal [place] 0.65%) 0 ml EA NARE QIDPRN PRN PRN Reason: Nasal Congestion Temazepam (Restoril) 15 mg PO HSPRN PRN PRN Reason: Insomnia Tramadol HCl (Ultram) 50 mg PO [facility] Last Admin: 02/23/18 21:51 Dose: 50 mg
[2018-02-24 13:35] LABS: Vancomycin, Trough 13.1 ug/mL
[2018-02-24] MEDS: Scopolamine 1.5 mg/72 hour Patch TOP SCH (14:06)
[2018-02-24] MEDS: Vancomycin HCl 1 GM in Premix Bag 1 BAG IVPB SCH (15:57)
[2018-02-24] MEDS: Dextrose 5 % And 0.9 % NaCl 1,000 ML IV SCH ×2 (18:44→20:41)
[2018-02-24] MEDS: traMADol HCl 50 MG TAB PO SCH (20:45)
[2018-02-24] MEDS: Vit A,C & E/Lutein/Minerals Tablet PO SCH (20:46)
[2018-02-24] MEDS: Atorvastatin Calcium 40 MG TAB PO SCH (20:46)
[2018-02-25] MEDS: Dextrose 5 % And 0.9 % NaCl 1,000 ML IV SCH ×2 (02:00→08:25)
[2018-02-25] MEDS: Vancomycin HCl 1 GM in Premix Bag 1 BAG IVPB SCH (03:39)
[2018-02-25] MEDS: Piperacillin/Tazobactam 4.5 GM in Sodium Chloride 0.9% 100 ML IVPB SCH (03:39)
[2018-02-25] MEDS ORDERED: Bisacodyl 10 MG SUPP PR PRN (07:10)
[2018-02-25] MEDS ORDERED: Calcium Carbonate 500 MG ChewTAB PER TUBE PRN (07:12)
[2018-02-25] MEDS ORDERED: Diabetic Tussin 200 MG/10 ML UDCUP PER TUBE PRN (07:12)
[2018-02-25] MEDS ORDERED: Senokot S 8.6-50 MG TAB PER TUBE PRN (07:12)
[2018-02-25] MEDS ORDERED: Acetaminophen 500 MG TAB PER TUBE PRN (07:12)
[2018-02-25] MEDS ORDERED: Ondansetron ODT 4 MG TAB SL PRN (07:12)
[2018-02-25] MEDS ORDERED: Temazepam 15 MG CAP PER TUBE PRN (07:12)
[2018-02-25] MEDS ORDERED: Bisacodyl 5 MG TAB PO PRN (07:12)
[2018-02-25] MEDS ORDERED: Loperamide HCl 2 MG CAP PER TUBE PRN (07:12)
[2018-02-25] MEDS ORDERED: Loratadine 10 MG TAB PER TUBE PRN (07:12)
[2018-02-25 08:13] LABS: Anion Gap 8 mmol/L (10-20); BUN (Urea Nitrogen) 11 mg/dL (8.4-25.7); Calc. Creatinine Clearance 70 mL/min (70-130); Calcium 8.2 mg/dL (7.8-10.44); Carbon Dioxide 28 mmol/L (23-31); Chloride 112 mmol/L (98-107); Estimated GFR-MDRD Greater than 90; Glucose 120 mg/dL (83-110); Sodium 145 mmol/L (136-145)
[2018-02-25 08:18] LABS: Potassium 2.9 mmol/L (3.5-5.1)
[2018-02-25] MEDS: Potassium Bicarbonate/Cit Ac 25 MEQ TAB PER TUBE SCH ×2 (08:26→16:58)
[2018-02-25] MEDS: Aspirin 325 MG TAB PER TUBE SCH (08:26)
[2018-02-25] MEDS: Clopidogrel Bisulfate 75 MG TAB PER TUBE SCH (08:26)
[2018-02-25] MEDS: Saccharomyces boulardii 250 MG CAP PER TUBE SCH (08:27)
[2018-02-25] MEDS: Amoxicillin/Potassium Clav 875 MG TAB PER TUBE SCH ×2 (08:27→21:54)
[2018-02-25] MEDS: Amlodipine 5 MG TAB PER TUBE SCH (08:28)
[2018-02-25] MEDS ORDERED: Aspirin 325 MG TAB PO SCH (09:00)
--- NOTE | 2018-02-25 11:11 | PDOC.PN ---
- Subjective Encounter Start Date: 02/25/18 Encounter Start Time: 07:30 Patient seen and examined. No overnight events - Objective Resuscitation Status: Resuscitation Status DNR:Do Not Resuscitate MAR Reviewed: Yes Vital Signs & Weight: Vital Signs (12 hours) Temp Pulse Resp BP BP Pulse Ox 02/25/18 08:28 61 108/54 L 02/25/18 08:08 98 02/25/18 07:58 98.0 F 61 20 106/57 L 98 02/25/18 03:29 98.0 F 71 20 136/63 97 02/24/18 23:28 98.7 F 68 18 123/58 L 99 Weight Admit Weight 143 lb 12.8 oz Weight 140 lb 3.424 oz I&O: 02/24/18 02/25/18 02/26/18 06:59 06:59 06:59 Intake Total 2766 2305 Balance 2766 2305 Result Diagrams: 02/23/18 08:29 02/25/18 07:46 EKG Reviewed by me: Yes (nsr) Phys Exam - Physical Examination Constitutional: NAD HEENT: PERRLA, moist MMs, sclera anicteric Neck: no JVD, supple coarse sound+ Cardiovascular: RRR, no significant murmur, no rub Gastrointestinal: soft, no distention, positive bowel sounds PEG+ Musculoskeletal: no edema, pulses present weakness noted, aphasia Lymphatic: no nodes Psychiatric: normal affect Skin: no rash, normal turgor Dx/Plan (1) Ischemic cerebrovascular accident (CVA) Code(s): I63.9 - CEREBRAL INFARCTION, UNSPECIFIED Status: Acute Comment: on aspirin, statin and Plavix (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 Status: Acute Comment: surgical risk high, per neurosurgery service (3) Dyslipidemia Code(s): E78.5 - HYPERLIPIDEMIA, UNSPECIFIED Status: Chronic Comment: on statin (4) HTN (hypertension) Code(s): I10 - ESSENTIAL (PRIMARY) HYPERTENSION Status: Chronic Comment: add amlodipine (5) Hypokalemia Code(s): E87.6 - HYPOKALEMIA Status: Resolved (6) Hypernatremia Code(s): E87.0 - HYPEROSMOLALITY AND HYPERNATREMIA Status: Acute (7) Hypomagnesemia Code(s): E83.42 - HYPOMAGNESEMIA Status: Acute (8) Thrombocytopenia Code(s): D69.6 - THROMBOCYTOPENIA, UNSPECIFIED Status: Acute - Plan cont current plan of care, continue antibiotics, PT/OT, healthcare social worker, speech therapy, respiratory therapy * change to augmentin 875 mg per tube bid * replace potassium * continue tube feeding and free water * will consider DC IVF today * medication reviewed as below * symptomatic treatment. * will need placement Review of Systems - Review of Systems Other: not reliable with pt due to his level of alertness and aphasia - Medications/Allergies Allergies/Adverse Reactions: Allergies Allergy/AdvReac Type Severity Reaction Status Date / Time No Known Allergies Allergy Verified 02/14/18 21:13 Medications: Current Medications Acetaminophen (Tylenol) 500 mg PER TUBE Q6H PRN PRN Reason: Mild Pain (1-3) Amlodipine Besylate (Norvasc) 5 mg PER TUBE DAILY [facility] Last Admin: 02/25/18 08:28 Dose: 5 mg Amoxicillin/Clavulanate Potassium (Augmentin) 875 mg PER TUBE Q12HR [facility] Last Admin: 02/25/18 08:27 Dose: 875 mg Artificial Tears (Tears Naturale) 2 drop EA EYE PRN PRN PRN Reason: Dry Eyes Aspirin (Aspirin) 325 mg PER TUBE DAILY [facility] Last Admin: 02/25/18 08:26 Dose: 325 mg Atorvastatin Calcium (Lipitor) 80 mg PER TUBE HS [facility] Bisacodyl (Dulcolax) 10 mg [place] Q8H PRN PRN Reason: Constipation Bisacodyl (Dulcolax) 10 mg PO DAILYPRN PRN PRN Reason: Constipation Calcium Carbonate (Tums) 1,000 mg PER TUBE Q4H PRN PRN Reason: Heartburn or Indigestion Clopidogrel Bisulfate (Plavix) 75 mg PER TUBE DAILY [facility] Last Admin: 02/25/18 08:26 Dose: 75 mg Guaifenesin (Robitussin Sf) 200 mg PER TUBE Q4H PRN PRN Reason: Cough Hydralazine HCl (Apresoline) 10 mg SLOW IVP Q4H PRN PRN Reason: SBP Greater Than 180 Dextrose/Sodium Chloride (D5 0.9% Ns) 1,000 mls @ 100 mls/hr IV .Q10H [facility] Last Admin: 02/25/18 08:25 Dose: 1,000 mls Labetalol HCl (Normodyne) 20 mg SLOW IVP Q1H PRN PRN Reason: SBP Greater Than 180 Loperamide HCl (Imodium) 2 mg PER TUBE PRN PRN PRN Reason: Diarrhea/Loose Stools Loratadine (Claritin) 10 mg PER TUBE DAILYPRN PRN PRN Reason: Sinus Symptoms Mineral Oil/White Petrolatum (Eucerin Cream) 0 gm TOP BIDPRN PRN PRN Reason: Dry Skin Miscellaneous Medication (Pharmacy To Dose) 1 each IVPB ONE PRN PRN Reason: Pharmacy to dose Stop: 03/20/18 12:38 Multivitamins/Minerals (Ocuvite With Lutein) 1 tab PER TUBE [facility] Ondansetron HCl (Zofran) 4 mg IVP Q6H PRN PRN Reason: Nausea/Vomiting Ondansetron HCl (Zofran Odt) 4 mg SL Q6H PRN PRN Reason: Nausea/Vomiting Potassium Bicarbonate/Citric Acid (K-Vescent) 25 meq PER TUBE BID-[facility] Last Admin: 02/25/18 08:26 Dose: 25 meq Potassium Chloride (Klor-Con) 40 meq PER TUBE 1030 [facility] Stop: 02/25/18 12:30 Last Admin: 02/25/18 10:49 Dose: 40 meq Potassium Chloride (Klor-Con) 40 meq PER TUBE BID-[facility] Saccharomyces Boulardii (Florastor) 250 mg PER TUBE DAILY [facility] Last Admin: 02/25/18 08:27 Dose: 250 mg Scopolamine (Transderm Scop) 1.5 mg TOP Q3D [facility] Last Admin: 02/24/18 14:06 Dose: 1.5 mg Senna/Docusate Sodium (Senokot S) 2 tab PER TUBE BID PRN PRN Reason: Constipation Sodium Chloride (Flush - Normal Saline) 10 ml IVF Q12HR [facility] Last Admin: 02/25/18 08:28 Dose: 10 ml Sodium Chloride (Flush - Normal Saline) 10 ml IVF PRN PRN PRN Reason: Saline Flush Last Admin: 02/14/18 23:46 Dose: 10 ml Sodium Chloride ([place] Nasal [place] 0.65%) 0 ml EA NARE QIDPRN PRN PRN Reason: Nasal Congestion Temazepam (Restoril) 15 mg PER TUBE HSPRN PRN PRN Reason: Insomnia Tramadol HCl (Ultram) 50 mg PO Q4H PRN PRN Reason: Pain 4-6
[2018-02-25] MEDS ORDERED: Potassium Chloride 20 MEQ TAB PER TUBE SCH (17:00)
[2018-02-25] MEDS ORDERED: Prevnar 13-Val Conj/PF 0.5 ML SYRINGE IM ONE (21:00)
[2018-02-25] MEDS: Atorvastatin Calcium 40 MG TAB PER TUBE SCH (21:54)
[2018-02-25] MEDS: Vit A,C & E/Lutein/Minerals Tablet PER TUBE SCH (21:55)
[2018-02-26] MEDS: Saccharomyces boulardii 250 MG CAP PER TUBE SCH (09:49)
[2018-02-26] MEDS: Amoxicillin/Potassium Clav 875 MG TAB PER TUBE SCH ×2 (09:49→21:45)
[2018-02-26] MEDS: Clopidogrel Bisulfate 75 MG TAB PER TUBE SCH (09:49)
[2018-02-26] MEDS: Potassium Bicarbonate/Cit Ac 25 MEQ TAB PER TUBE SCH ×2 (09:49→16:35)
[2018-02-26] MEDS: Aspirin 325 MG TAB PER TUBE SCH (09:49)
[2018-02-26] MEDS: Amlodipine 5 MG TAB PER TUBE SCH (09:49)
--- NOTE | 2018-02-26 10:43 | PDOC.PN ---
- Subjective Encounter Start Date: 02/26/18 Encounter Start Time: 07:30 Patient seen and examined. bedside, No overnight events - Objective Resuscitation Status: Resuscitation Status DNR:Do Not Resuscitate MAR Reviewed: Yes Vital Signs & Weight: Vital Signs (12 hours) Temp Pulse Resp BP BP Pulse Ox 02/26/18 09:49 93 129/78 02/26/18 07:53 98.1 F 93 20 129/78 98 02/26/18 04:29 98.3 F 100 18 113/71 98 02/26/18 00:00 100.1 F H 80 28 H 153/69 H 96 Weight Admit Weight 143 lb 12.8 oz Weight 140 lb 3.424 oz I&O: 02/25/18 02/26/18 02/27/18 06:59 06:59 06:59 Intake Total 2305 1180 Balance 2305 1180 Result Diagrams: 02/23/18 08:29 02/25/18 07:46 EKG Reviewed by me: Yes Phys Exam - Physical Examination Constitutional: NAD HEENT: PERRLA, sclera anicteric Neck: no JVD, supple Respiratory: no wheezing, no rales, no rhonchi Cardiovascular: RRR, no significant murmur, no rub Gastrointestinal: soft, no distention, positive bowel sounds peg+ Musculoskeletal: no edema, pulses present sleepy today Skin: no rash, normal turgor Dx/Plan (1) Ischemic cerebrovascular accident (CVA) Code(s): I63.9 - CEREBRAL INFARCTION, UNSPECIFIED Status: Acute Comment: on aspirin, statin and Plavix (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 Status: Acute Comment: surgical risk high, per neurosurgery service (3) Dyslipidemia Code(s): E78.5 - HYPERLIPIDEMIA, UNSPECIFIED Status: Chronic Comment: on statin (4) HTN (hypertension) Code(s): I10 - ESSENTIAL (PRIMARY) HYPERTENSION Status: Chronic Comment: add amlodipine (5) Hypokalemia Code(s): E87.6 - HYPOKALEMIA Status: Resolved (6) Hypernatremia Code(s): E87.0 - HYPEROSMOLALITY AND HYPERNATREMIA Status: Acute (7) Hypomagnesemia Code(s): E83.42 - HYPOMAGNESEMIA Status: Acute (8) Thrombocytopenia Code(s): D69.6 - THROMBOCYTOPENIA, UNSPECIFIED Status: Acute - Plan cont current plan of care, plan discussed w/ family, continue antibiotics, PT/OT , psychotherapist social worker * await placement * discussed with bedside and updated plan * medication reviewed as below * symptomatic treatment. Review of Systems - Review of Systems Other: unable to obtain as pt has aphasia and sleepy and current cognitive status - Medications/Allergies Allergies/Adverse Reactions: Allergies Allergy/AdvReac Type Severity Reaction Status Date / Time No Known Allergies Allergy Verified 02/14/18 21:13 Medications: Current Medications Acetaminophen (Tylenol) 500 mg PER TUBE Q6H PRN PRN Reason: Mild Pain (1-3) Amlodipine Besylate (Norvasc) 5 mg PER TUBE DAILY [facility] Last Admin: 02/26/18 09:49 Dose: 5 mg Amoxicillin/Clavulanate Potassium (Augmentin) 875 mg PER TUBE Q12HR [facility] Last Admin: 02/26/18 09:49 Dose: 875 mg Artificial Tears (Tears Naturale) 2 drop EA EYE PRN PRN PRN Reason: Dry Eyes Aspirin (Aspirin) 325 mg PER TUBE DAILY [facility] Last Admin: 02/26/18 09:49 Dose: 325 mg Atorvastatin Calcium (Lipitor) 80 mg PER TUBE HS [facility] Last Admin: 02/25/18 21:54 Dose: 80 mg Bisacodyl (Dulcolax) 10 mg [place] Q8H PRN PRN Reason: Constipation Bisacodyl (Dulcolax) 10 mg PO DAILYPRN PRN PRN Reason: Constipation Calcium Carbonate (Tums) 1,000 mg PER TUBE Q4H PRN PRN Reason: Heartburn or Indigestion Clopidogrel Bisulfate (Plavix) 75 mg PER TUBE DAILY [facility] Last Admin: 02/26/18 09:49 Dose: 75 mg Guaifenesin (Robitussin Sf) 200 mg PER TUBE Q4H PRN PRN Reason: Cough Hydralazine HCl (Apresoline) 10 mg SLOW IVP Q4H PRN PRN Reason: SBP Greater Than 180 Labetalol HCl (Normodyne) 20 mg SLOW IVP Q1H PRN PRN Reason: SBP Greater Than 180 Loperamide HCl (Imodium) 2 mg PER TUBE PRN PRN PRN Reason: Diarrhea/Loose Stools Loratadine (Claritin) 10 mg PER TUBE DAILYPRN PRN PRN Reason: Sinus Symptoms Mineral Oil/White Petrolatum (Eucerin Cream) 0 gm TOP BIDPRN PRN PRN Reason: Dry Skin Miscellaneous Medication (Pharmacy To Dose) 1 each IVPB ONE PRN PRN Reason: Pharmacy to dose Stop: 03/20/18 12:38 Multivitamins/Minerals (Ocuvite With Lutein) 1 tab PER TUBE [facility] Last Admin: 02/25/18 21:55 Dose: 1 tab Ondansetron HCl (Zofran) 4 mg IVP Q6H PRN PRN Reason: Nausea/Vomiting Ondansetron HCl (Zofran Odt) 4 mg SL Q6H PRN PRN Reason: Nausea/Vomiting Potassium Bicarbonate/Citric Acid (K-Vescent) 25 meq PER TUBE BID-[facility] Last Admin: 02/26/18 09:49 Dose: 25 meq Potassium Chloride ([facility]lor-Con) [facility] Last Admin: 02/26/18 09:49 Dose: 40 meq Saccharomyces Boulardii (Florastor) 250 mg PER TUBE DAILY [facility] Last Admin: 02/26/18 09:49 Dose: 250 mg Scopolamine (Transderm Scop) 1.5 mg TOP Q3D [facility] Last Admin: 02/24/18 14:06 Dose: 1.5 mg Senna/Docusate Sodium (Senokot S) 2 tab PER TUBE BID PRN PRN Reason: Constipation Sodium Chloride (Flush - Normal Saline) 10 ml IVF Q12HR [facility] Last Admin: 02/26/18 09:50 Dose: 10 ml Sodium Chloride (Flush - Normal Saline) 10 ml IVF PRN PRN PRN Reason: Saline Flush Last Admin: 02/14/18 23:46 Dose: 10 ml Sodium Chloride ([place] Nasal [place] 0.65%) 0 ml EA NARE QIDPRN PRN PRN Reason: Nasal Congestion Temazepam (Restoril) 15 mg PER TUBE HSPRN PRN PRN Reason: Insomnia Tramadol HCl (Ultram) 50 mg PO Q4H PRN PRN Reason: Pain 4-6
[2018-02-26] MEDS: Atorvastatin Calcium 40 MG TAB PER TUBE SCH (21:45)
[2018-02-26] MEDS: traMADol HCl 50 MG TAB PO PRN (21:46)
[2018-02-26] MEDS: Vit A,C & E/Lutein/Minerals Tablet PER TUBE SCH (21:46)
[2018-02-27 04:48] LABS: Anion Gap 10 mmol/L (10-20); BUN (Urea Nitrogen) 18 mg/dL (8.4-25.7); Calc. Creatinine Clearance 69 mL/min (70-130); Carbon Dioxide 23 mmol/L (23-31); Chloride 110 mmol/L (98-107); Estimated GFR-MDRD Greater than 90; Glucose 119 mg/dL (83-110); Potassium 4.3 mmol/L (3.5-5.1); Sodium 139 mmol/L (136-145)
[2018-02-27 05:39] LABS: Band 4 % (5-11); Differential Comment Immature Cell(s); Eosinophils 1 % (0-10); Hemoglobin 10.3 g/dL (14.0-18.0); Lymphocytes 11 % (21-51); MDiff Complete? YES; Mean Corpuscular HGB CONC 33.1 g/dL (32.0-36.0); Mean Corpuscular Hemoglobin 31.8 pg (27.0-31.0); Mean Corpuscular Volume 96.2 fL (78.0-98.0); Mean Platelet Volume 10.4 fL (7.4-10.4); Monocytes 3 % (0-10); Neutrophil 79 % (42-75); PLT Morphology Comment Appears Decreased; Platelet Count 49 thou/uL (130-400); RBC Distribution Width 13.8 % (11.5-14.5); Red Blood Cell (RBC) Count 3.23 mill/uL (4.70-6.10); Reflex for Review?? YES; White Blood Cell (WBC) Count 10.4 thou/uL (4.8-10.8)
[2018-02-27] MEDS: Amlodipine 5 MG TAB PER TUBE SCH (09:05)
[2018-02-27] MEDS: Potassium Bicarbonate/Cit Ac 25 MEQ TAB PER TUBE SCH ×2 (09:05→17:14)
[2018-02-27] MEDS: Pantoprazole 40 MG GRANULES PACKET PER TUBE SCH (09:06)
[2018-02-27] MEDS: Clopidogrel Bisulfate 75 MG TAB PER TUBE SCH (09:06)
[2018-02-27] MEDS: Aspirin 325 MG TAB PER TUBE SCH (09:06)
[2018-02-27] MEDS: Amoxicillin/Potassium Clav 875 MG TAB PER TUBE SCH ×2 (09:06→20:05)
[2018-02-27] MEDS: Saccharomyces boulardii 250 MG CAP PER TUBE SCH (09:06)
--- NOTE | 2018-02-27 10:18 | PDOC.PN ---
- Subjective Encounter Start Date: 02/27/18 Encounter Start Time: 09:00 Patient seen and examined. No overnight events - Objective Resuscitation Status: Resuscitation Status DNR:Do Not Resuscitate MAR Reviewed: Yes Vital Signs & Weight: Vital Signs (12 hours) Temp Pulse Resp BP BP Pulse Ox 02/27/18 09:05 79 117/56 L 02/27/18 08:00 98.2 F 79 20 117/56 L 98 02/27/18 07:28 94 L 02/27/18 04:00 99.2 F 80 24 H 150/70 H 94 L 02/27/18 00:00 98.0 F 97 24 H 118/61 94 L Weight Admit Weight 143 lb 12.8 oz Weight 140 lb 3.424 oz I&O: 02/26/18 02/27/18 02/28/18 06:59 06:59 06:59 Intake Total 1180 1860 Balance 1180 1860 Result Diagrams: 02/27/18 03:40 02/27/18 03:40 Phys Exam - Physical Examination Constitutional: NAD HEENT: PERRLA, moist MMs, sclera anicteric Neck: no JVD, supple Respiratory: no wheezing, no rales, no rhonchi Cardiovascular: RRR, no significant murmur, no rub Gastrointestinal: soft, non-tender, no distention, positive bowel sounds peg+ Musculoskeletal: no edema, pulses present Lymphatic: no nodes Psychiatric: normal affect Skin: no rash, normal turgor Dx/Plan (1) Ischemic cerebrovascular accident (CVA) Code(s): I63.9 - CEREBRAL INFARCTION, UNSPECIFIED Status: Acute Comment: on aspirin, statin and Plavix (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 Status: Acute Comment: surgical risk high, per neurosurgery service (3) Dyslipidemia Code(s): E78.5 - HYPERLIPIDEMIA, UNSPECIFIED Status: Chronic Comment: on statin (4) HTN (hypertension) Code(s): I10 - ESSENTIAL (PRIMARY) HYPERTENSION Status: Chronic Comment: add amlodipine (5) Hypokalemia Code(s): E87.6 - HYPOKALEMIA Status: Resolved (6) Hypernatremia Code(s): E87.0 - HYPEROSMOLALITY AND HYPERNATREMIA Status: Acute (7) Hypomagnesemia Code(s): E83.42 - HYPOMAGNESEMIA Status: Acute (8) Thrombocytopenia Code(s): D69.6 - THROMBOCYTOPENIA, UNSPECIFIED Status: Acute - Plan cont current plan of care, continue antibiotics, PT/OT, geriatric social worker, speech therapy * medication reviewed as below * symptomatic treatment * continue supportive care * await placement to snu * medically stable with current treatment. Review of Systems - Review of Systems Other: unable to review with pt due to non verbal status and cognitive status - Medications/Allergies Allergies/Adverse Reactions: Allergies Allergy/AdvReac Type Severity Reaction Status Date / Time No Known Allergies Allergy Verified 02/14/18 21:13 Medications: Current Medications Acetaminophen (Tylenol) 500 mg PER TUBE Q6H PRN PRN Reason: Mild Pain (1-3) Amlodipine Besylate (Norvasc) 5 mg PER TUBE DAILY [facility] Last Admin: 02/27/18 09:05 Dose: 5 mg Amoxicillin/Clavulanate Potassium (Augmentin) 875 mg PER TUBE Q12HR [facility] Last Admin: 02/27/18 09:06 Dose: 875 mg Artificial Tears (Tears Naturale) 2 drop EA EYE PRN PRN PRN Reason: Dry Eyes Aspirin (Aspirin) 325 mg PER TUBE DAILY [facility] Last Admin: 02/27/18 09:06 Dose: 325 mg Atorvastatin Calcium (Lipitor) 80 mg PER TUBE HS [facility] Last Admin: 02/26/18 21:45 Dose: 80 mg Bisacodyl (Dulcolax) 10 mg [place] Q8H PRN PRN Reason: Constipation Bisacodyl (Dulcolax) 10 mg PO DAILYPRN PRN PRN Reason: Constipation Calcium Carbonate (Tums) 1,000 mg PER TUBE Q4H PRN PRN Reason: Heartburn or Indigestion Clopidogrel Bisulfate (Plavix) 75 mg PER TUBE DAILY [facility] Last Admin: 02/27/18 09:06 Dose: 75 mg Guaifenesin (Robitussin Sf) 200 mg PER TUBE Q4H PRN PRN Reason: Cough Hydralazine HCl (Apresoline) 10 mg SLOW IVP Q4H PRN PRN Reason: SBP Greater Than 180 Labetalol HCl (Normodyne) 20 mg SLOW IVP Q1H PRN PRN Reason: SBP Greater Than 180 Loperamide HCl (Imodium) 2 mg PER TUBE PRN PRN PRN Reason: Diarrhea/Loose Stools Loratadine (Claritin) 10 mg PER TUBE DAILYPRN PRN PRN Reason: Sinus Symptoms Mineral Oil/White Petrolatum (Eucerin Cream) 0 gm TOP BIDPRN PRN PRN Reason: Dry Skin Miscellaneous Medication (Pharmacy To Dose) 1 each IVPB ONE PRN PRN Reason: Pharmacy to dose Stop: 03/20/18 12:38 Multivitamins/Minerals (Ocuvite With Lutein) 1 tab PER TUBE HS [facility] Last Admin: 02/26/18 21:46 Dose: 1 tab Ondansetron HCl (Zofran) 4 mg IVP Q6H PRN PRN Reason: Nausea/Vomiting Ondansetron HCl (Zofran Odt) 4 mg SL Q6H PRN PRN Reason: Nausea/Vomiting Pantoprazole Sodium (Protonix) 40 mg PER TUBE DAILY [facility] Last Admin: 02/27/18 09:06 Dose: 40 mg Potassium Bicarbonate/Citric Acid (K-Vescent) 25 meq PER TUBE BID-[facility] Last Admin: 02/27/18 09:05 Dose: 25 meq Saccharomyces Boulardii (Florastor) 250 mg PER TUBE DAILY [facility] Last Admin: 02/27/18 09:06 Dose: 250 mg Scopolamine (Transderm Scop) 1.5 mg TOP Q3D [facility] Last Admin: 02/24/18 14:06 Dose: 1.5 mg Senna/Docusate Sodium (Senokot S) 2 tab PER TUBE BID PRN PRN Reason: Constipation Sodium Chloride (Flush - Normal Saline) 10 ml IVF Q12HR [facility] Last Admin: 02/27/18 09:06 Dose: 10 ml Sodium Chloride (Flush - Normal Saline) 10 ml IVF PRN PRN PRN Reason: Saline Flush Last Admin: 02/14/18 23:46 Dose: 10 ml Sodium Chloride ([place] Nasal [place] 0.65%) 0 ml EA NARE QIDPRN PRN PRN Reason: Nasal Congestion Temazepam (Restoril) 15 mg PER TUBE HSPRN PRN PRN Reason: Insomnia Tramadol HCl (Ultram) 50 mg PO Q4H PRN PRN Reason: Pain 4-6 Last Admin: 02/26/18 21:46 Dose: 50 mg
[2018-02-27] MEDS: traMADol HCl 50 MG TAB PO PRN (14:56)
[2018-02-27] MEDS: Scopolamine 1.5 mg/72 hour Patch TOP SCH (14:57)
[2018-02-27] MEDS: Vit A,C & E/Lutein/Minerals Tablet PER TUBE SCH (20:05)
[2018-02-27] MEDS: Atorvastatin Calcium 40 MG TAB PER TUBE SCH (20:05)
[2018-02-28] MEDS: Aspirin 325 MG TAB PER TUBE SCH (07:45)
[2018-02-28] MEDS: Clopidogrel Bisulfate 75 MG TAB PER TUBE SCH (07:45)
[2018-02-28] MEDS: Saccharomyces boulardii 250 MG CAP PER TUBE SCH (07:45)
[2018-02-28] MEDS: Amoxicillin/Potassium Clav 875 MG TAB PER TUBE SCH (07:45)
[2018-02-28] MEDS: Pantoprazole 40 MG GRANULES PACKET PER TUBE SCH (07:45)
--- NOTE | 2018-02-28 07:54 | PDOC.PN ---
- Subjective Encounter Start Date: 02/28/18 Encounter Start Time: 06:50 Patient seen and examined. No overnight events - Objective Resuscitation Status: Resuscitation Status DNR:Do Not Resuscitate MAR Reviewed: Yes Vital Signs & Weight: Vital Signs (12 hours) Temp Pulse Resp BP Pulse Ox 02/28/18 07:36 98.8 F 92 20 131/72 95 02/28/18 03:27 98 F 89 22 H 136/72 95 02/27/18 23:27 98.2 F 81 20 134/80 95 02/27/18 20:05 96 Weight Admit Weight 143 lb 12.8 oz Weight 140 lb 3.424 oz I&O: 02/27/18 02/28/18 03/01/18 06:59 06:59 06:59 Intake Total 1859 1919 Output Total 1 Balance 1859 1918 Result Diagrams: 02/27/18 03:40 02/27/18 03:40 EKG Reviewed by me: Yes Phys Exam - Physical Examination Constitutional: NAD HEENT: PERRLA, moist MMs, sclera anicteric Neck: no JVD, supple Respiratory: no wheezing, no rales, no rhonchi coarse sound upper part Cardiovascular: RRR, no significant murmur, no rub Gastrointestinal: soft, non-tender, no distention, positive bowel sounds Musculoskeletal: no edema, pulses present apahsia, weakness noted Psychiatric: normal affect Skin: no rash, normal turgor Dx/Plan (1) Ischemic cerebrovascular accident (CVA) Code(s): I63.9 - CEREBRAL INFARCTION, UNSPECIFIED Status: Acute Comment: on aspirin, statin and Plavix (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 Status: Acute Comment: surgical risk high, per neurosurgery service (3) Dyslipidemia Code(s): E78.5 - HYPERLIPIDEMIA, UNSPECIFIED Status: Chronic Comment: on statin (4) HTN (hypertension) Code(s): I10 - ESSENTIAL (PRIMARY) HYPERTENSION Status: Chronic Comment: add amlodipine (5) Hypokalemia Code(s): E87.6 - HYPOKALEMIA Status: Resolved (6) Hypernatremia Code(s): E87.0 - HYPEROSMOLALITY AND HYPERNATREMIA Status: Acute (7) Hypomagnesemia Code(s): E83.42 - HYPOMAGNESEMIA Status: Acute (8) Thrombocytopenia Code(s): D69.6 - THROMBOCYTOPENIA, UNSPECIFIED Status: Acute - Plan cont current plan of care, continue antibiotics, PT/OT, transition social worker * medication reviewed as below * symptomatic treatment * tube feeding * medication via peg * await snu placement. Review of Systems - Review of Systems Other: unable to review due to aphasia and his current cognitive status - Medications/Allergies Allergies/Adverse Reactions: Allergies Allergy/AdvReac Type Severity Reaction Status Date / Time No Known Allergies Allergy Verified 02/14/18 21:13 Medications: Current Medications Acetaminophen (Tylenol) 500 mg PER TUBE Q6H PRN PRN Reason: Mild Pain (1-3) Amlodipine Besylate (Norvasc) 5 mg PER TUBE DAILY [facility] Last Admin: 02/27/18 09:05 Dose: 5 mg Amoxicillin/Clavulanate Potassium (Augmentin) 875 mg PER TUBE Q12HR [facility] Last Admin: 02/27/18 20:05 Dose: 875 mg Artificial Tears (Tears Naturale) 2 drop EA EYE PRN PRN PRN Reason: Dry Eyes Aspirin (Aspirin) 325 mg PER TUBE DAILY [facility] Last Admin: 02/27/18 09:06 Dose: 325 mg Atorvastatin Calcium (Lipitor) 80 mg PER TUBE HS [facility] Last Admin: 02/27/18 20:05 Dose: 80 mg Bisacodyl (Dulcolax) 10 mg [place] Q8H PRN PRN Reason: Constipation Bisacodyl (Dulcolax) 10 mg PO DAILYPRN PRN PRN Reason: Constipation Calcium Carbonate (Tums) 1,000 mg PER TUBE Q4H PRN PRN Reason: Heartburn or Indigestion Clopidogrel Bisulfate (Plavix) 75 mg PER TUBE DAILY [facility] Last Admin: 02/27/18 09:06 Dose: 75 mg Guaifenesin (Robitussin Sf) 200 mg PER TUBE Q4H PRN PRN Reason: Cough Hydralazine HCl (Apresoline) 10 mg SLOW IVP Q4H PRN PRN Reason: SBP Greater Than 180 Labetalol HCl (Normodyne) 20 mg SLOW IVP Q1H PRN PRN Reason: SBP Greater Than 180 Loperamide HCl (Imodium) 2 mg PER TUBE PRN PRN PRN Reason: Diarrhea/Loose Stools Loratadine (Claritin) 10 mg PER TUBE DAILYPRN PRN PRN Reason: Sinus Symptoms Mineral Oil/White Petrolatum (Eucerin Cream) 0 gm TOP BIDPRN PRN PRN Reason: Dry Skin Miscellaneous Medication (Pharmacy To Dose) 1 each IVPB ONE PRN PRN Reason: Pharmacy to dose Stop: 03/20/18 12:38 Multivitamins/Minerals (Ocuvite With Lutein) 1 tab PER TUBE [facility] Last Admin: 02/27/18 20:05 Dose: 1 tab Ondansetron HCl (Zofran) 4 mg IVP Q6H PRN PRN Reason: Nausea/Vomiting Ondansetron HCl (Zofran Odt) 4 mg SL Q6H PRN PRN Reason: Nausea/Vomiting Pantoprazole Sodium (Protonix) 40 mg PER TUBE DAILY [facility] Last Admin: 02/27/18 09:06 Dose: 40 mg Potassium Bicarbonate/Citric Acid (K-Vescent) 25 meq PER TUBE BID-[facility] Last Admin: 02/27/18 17:14 Dose: 25 meq Saccharomyces Boulardii (Florastor) 250 mg PER TUBE DAILY [facility] Last Admin: 02/27/18 09:06 Dose: 250 mg Scopolamine (Transderm Scop) 1.5 mg TOP Q3D [facility] Last Admin: 02/27/18 14:57 Dose: 1.5 mg Senna/Docusate Sodium (Senokot S) 2 tab PER TUBE BID PRN PRN Reason: Constipation Sodium Chloride (Flush - Normal Saline) 10 ml IVF Q12HR [facility] Last Admin: 02/27/18 20:05 Dose: Not Given Sodium Chloride (Flush - Normal Saline) 10 ml IVF PRN PRN PRN Reason: Saline Flush Last Admin: 02/14/18 23:46 Dose: 10 ml Sodium Chloride ([place] Nasal [place] 0.65%) 0 ml EA NARE QIDPRN PRN PRN Reason: Nasal Congestion Temazepam (Restoril) 15 mg PER TUBE HSPRN PRN PRN Reason: Insomnia Tramadol HCl (Ultram) 50 mg PO Q4H PRN PRN Reason: Pain 4-6 Last Admin: 02/27/18 14:56 Dose: 50 mg
[2018-02-28] MEDS: Amlodipine 5 MG TAB PER TUBE SCH (08:08)
[2018-02-28] MEDS: Potassium Bicarbonate/Cit Ac 25 MEQ TAB PER TUBE SCH ×2 (08:39→16:51)
[2018-02-28] MEDS ORDERED: Clindamycin/D5W 300 MG/50 ML BAG IVPB SCH (14:00)
[2018-02-28] MEDS ORDERED: Morphine 2 MG/ML SYRINGE SLOW IVP PRN (14:13)
[2018-02-28] MEDS: Morphine 2 MG/ML SYRINGE IM PRN ×2 (14:21→16:33)
--- NOTE | 2018-02-28 15:12 | RAD ---
PORTABLE CHEST 1 VIEW: Date: 02/28/18 Time: 1313 hours HISTORY: Cough, probable aspiration. FINDINGS: Comparison made with exam of 02/21/18. The heart size is borderline. The aorta is tortuous. No lobar consolidation, pneumothoraces, jamie pu lmonary edema, or large effusions are seen. IMPRESSION: No acute process. POS: [facility]
[2018-02-28 15:46] VITALS: BP 129/69; TEMP 99
--- NOTE | 2018-02-28 22:20 | DIS ---
PRIMARY CARE PHYSICIAN: Dr. Mayda Montes De Oca DATE OF ADMISSION: 02/14/2018 DATE OF DISCHARGE: 02/28/2018 DISCHARGE DISPOSITION: Inpatient hospice for comfort care. PRIMARY DISCHARGE DIAGNOSES: 1. 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 2. Oropharyngeal dysphagia. 3. Aspiration pneumonia. 4. Abnormal electrolytes. SECONDARY DISCHARGE DIAGNOSES: Thrombocytopenia, vertebrobasilar dolichoectasia, dyslipidemia, hyper tension. PRIMARY PROCEDURE/OPERATION: PEG tube placement. 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 MRI brain showed left paramedian malik infarct, fusif orm dilatation of the basilar artery. Echocardiography showed EF 60-65%, diastolic dysfunction. Rep eat CT brain did not show any acute change. Repeat MRI brain showed another infarct. Chest x- ray showed aspiration pneumonia. SIGNIFICANT LABORATORY DATA: WBC 10.4, hemoglobin 10.3, platelets 49. INR 1.1. Sodium 139, potassi um 4.3, BUN 18, creatinine 0.68, calcium 9.0. Urinalysis unremarkable. Blood culture, urine culture negative. DISCHARGE MEDICATIONS: Patient is discharged to inpatient hospice for comfort care. Comfort care me dication based on primary hospice team. CONTRAINDICATIONS: None. CODE STATUS: DNR. INPATIENT CONSULTANTS: Neurology was following while in hospital. Manager Poker was consulted for PEG tube placement. TEST RESULTS PENDING ON DISCHARGE: None. ALLERGIES: No known drug allergies. DISCHARGE PLAN: Post hospital, the patient is discharged to inpatient hospice facility for comfort c are. HOSPITAL COURSE: An 87-year-old male who was admitted by on 02/15/2018. Please see his H&P for further detail. Patient was admitted for acute stroke. Patient had slurred speech and weakness . Patient was having left-sided weakness. He had initially CT brain which showed fusiform dilatatio n of the basilar artery. There was no infarct on initial CT brain. CT [place] angiography showed fusiform dilatation of the basilar artery. An MRI brain confirmed a left paramedian pontine i nfarct. Echocardiography showed diastolic dysfunction. His environmental monitoring technician was showing multiple P VCs and intermittently SVT. The patient's prognosis was very poor. He had oropharyngeal dysphagia. He was not improving and alexa t is why he required a PEG tube placement. He also had aspiration pneumonia which was treated with v ancomycin and Zosyn and subsequently changed to clindamycin, Augmentin. The patient had another right-sided brainstem infarct. The patient was not improving at all and his condition day by day was deteriorating. Family member was notified about patient's prognosis and the y agreed with DNR status and subsequently, patient's condition deteriorated and that is why they shaila mmended to let him go to inpatient hospice. Patient is seen and examined at bedside multiple times today. Patient is discharged to inpatient [facility] as he qualified for hospice care. Total time spent on discharge day 35 minutes.
== END 2018-02-28 18:32 | disposition hospice, inpatient (51) | DRG 64 ==
LOC: ERS 17:16 → 2SE 18:35 → 2NO 02-17 18:23 → 2SE 02-20 19:02
PROVIDERS: ADMIT Family Medicine; ATTEND Family Medicine
PROC: 0DH63UZ Insertion of Feeding Device into Stomach, Percutaneous Approach (ICD-10-PCS; principal; 2018-02-21)
PROC: 0DJ08ZZ Inspection of Upper Intestinal Tract, Via Natural or Artificial Opening Endoscopic (ICD-10-PCS; 2018-02-21)
DX: I63.9 Cerebral infarction, unspecified (principal); J69.0 Pneumonitis due to inhalation of food and vomit; G81.91 Hemiplegia, unspecified affecting right dominant side; E87.0 Hyperosmolality and hypernatremia; R47.81 Slurred speech; E87.6 Hypokalemia; D69.6 Thrombocytopenia, unspecified; E78.5 Hyperlipidemia, unspecified; I10 Essential (primary) hypertension; Z79.899 Other long term (current) drug therapy; R47.01 Aphasia; R13.12 Dysphagia, oropharyngeal phase; Z66 Do not resuscitate; H35.30 Unspecified macular degeneration; I65.1 Occlusion and stenosis of basilar artery; E83.42 Hypomagnesemia; R29.717 NIHSS score 17
CPT/HCPCS: 36415; 36416; 70450; 70496; 70498; 70551; 71045; 80048; 80053; 80061; 80202; 81003; 81015; 82550; 82553; 83735; 84100; 84443; 84484; 85025; 85060; 85610; 85730; 87040; 87086; 90471; 90662; 90670; 93005; 93306; 94640; G0008; G0009; G8978-GP-CK; G8978-GP-CM; G8979-GP-CJ; G8979-GP-CK; G8987-GO-CK; G8987-GO-CM; G8988-GO-CJ; G8988-GO-CK; G8996-GN-CN; G8997-GN-CJ; G8999-GN-CJ; G9186-GN-CI; J0360; J1940; J2270; J2543; J2704; J3370; J3480; J7050; J7620